=== PATIENT | male | born 1935 | race Caucasian/White ===

== ENCOUNTER → 2017-10-30 13:38 | Outpatient (CLI) | payer MEDICARE, OTHER, SELFPAY ==
[2017-10-30 15:11] LABS: Alanine Aminotransferase 41 IU/L (21-72); Aspartate Aminotransferase 37 IU/L (17-59); Cholesterol 133 mg/dL (140-199); HDL Cholesterol 38 mg/dL (40-60); LDL Cholesterol Calculated 70 mg/dL (<100); Triglycerides 125 mg/dL (35-150)
== END ==
PROVIDERS: PCP Internal Medicine; Visit Provider Internal Medicine
DX: E78.00 Pure hypercholesterolemia, unspecified (principal)
CPT/HCPCS: 36415; 80061; 84450; 84460

== ENCOUNTER → 2017-12-14 10:27 | Outpatient (CLI) | payer MEDICARE, OTHER, SELFPAY ==
[2017-12-14 11:18] LABS: Hematocrit 42.1 % (41-53); Hemoglobin 14.4 g/dL (13.5-17.5)
[2017-12-14 11:38] LABS: Creatinine Urine Random 102.3 mg/dL; Protein (Total) Urine Random 11 mg/dL (0-12)
[2017-12-14 11:40] LABS: Blood Urea Nitrogen 24 mg/dL (9-20); Calcium 9.5 mg/dL (8.4-10.2); Carbon Dioxide 33 mmol/L (22-32); Chloride 102 mmol/L (98-107); Estimated Glomerular Filt Rate 44.7 mL/min (>60); Glucose 108 mg/dL (80-110); HEMOLYSIS < 15 (0-50); Potassium 4.8 mmol/L (3.4-5.1); Sodium 144 mmol/L (137-145)
[2017-12-15 16:41] LABS: Parathyroid Hormone Int 63 pg/mL (14-64)
== END ==
PROVIDERS: PCP Internal Medicine; Visit Provider Student in an Organized Health Care Education/Training Program
DX: N05.9 Unspecified nephritic syndrome with unspecified morphologic changes (principal); D64.9 Anemia, unspecified; N25.81 Secondary hyperparathyroidism of renal origin; R80.9 Proteinuria, unspecified
CPT/HCPCS: 36415; 80048; 82570; 83970; 84156; 85014; 85018

== ENCOUNTER → 2018-06-24 10:54 | Outpatient (CLI) | payer MEDICARE, OTHER, SELFPAY ==
[2018-06-24 11:46] LABS: Hematocrit 42.1 % (41-53); Hemoglobin 13.9 g/dL (13.5-17.5)
[2018-06-24 12:10] LABS: BUN Creatinine Ratio 14.7 (6-22); Blood Urea Nitrogen 25 mg/dL (9-20); Calcium 9.3 mg/dL (8.4-10.2); Carbon Dioxide 29 mmol/L (22-32); Chloride 103 mmol/L (98-107); Estimated Glomerular Filt Rate 38.7 mL/min (>60); Glucose 100 mg/dL (80-110); HEMOLYSIS < 15 (0-50); Potassium 4.8 mmol/L (3.4-5.1); Sodium 141 mmol/L (137-145)
[2018-06-24 15:47] LABS: Creatinine Urine Random 185.3 mg/dL; Protein (Total) Urine Random 9 mg/dL (0-12); Protein Creatinine Ratio Urine 0.04 GRAM/24H
[2018-06-27 14:13] LABS: Parathyroid Hormone Int 71 pg/mL (14-64)
== END ==
PROVIDERS: PCP Internal Medicine; Referring Provider Internal Medicine Cardiovascular Disease; Visit Provider Student in an Organized Health Care Education/Training Program
DX: N05.9 Unspecified nephritic syndrome with unspecified morphologic changes (principal); D64.9 Anemia, unspecified; N25.81 Secondary hyperparathyroidism of renal origin; R80.9 Proteinuria, unspecified
CPT/HCPCS: 36415; 80048; 82570; 83970; 84156; 85014; 85018

== ENCOUNTER → 2019-01-02 10:38 | Outpatient (CLI) | payer MEDICARE, OTHER, SELFPAY ==
[2019-01-02 11:32] LABS: Hematocrit 42.2 % (41-53); Hemoglobin 14.4 g/dL (13.5-17.5)
[2019-01-02 12:08] LABS: BUN Creatinine Ratio 17.6 (6-22); Blood Urea Nitrogen 30 mg/dL (9-20); Calcium 9.7 mg/dL (8.4-10.2); Carbon Dioxide 30 mmol/L (22-32); Chloride 100 mmol/L (98-107); Estimated Glomerular Filt Rate 38.6 mL/min (>60); Glucose 152 mg/dL (80-110); HEMOLYSIS < 15 (0-50); Potassium 4.9 mmol/L (3.4-5.1); Sodium 138 mmol/L (137-145)
[2019-01-02 12:20] LABS: Creatinine Urine Random 141.5 mg/dL; Protein (Total) Urine Random 11 mg/dL (0-12); Protein Creatinine Ratio Urine 0.07 GRAM/24H
[2019-01-04 15:09] LABS: Parathyroid Hormone Int 24 pg/mL (14-64)
== END ==
PROVIDERS: Family Provider Internal Medicine; PCP Internal Medicine; Visit Provider Student in an Organized Health Care Education/Training Program
DX: N05.9 Unspecified nephritic syndrome with unspecified morphologic changes (principal); D64.9 Anemia, unspecified; N25.81 Secondary hyperparathyroidism of renal origin; R80.9 Proteinuria, unspecified
CPT/HCPCS: 36415; 80048; 82570; 83970; 84156; 85014; 85018

== ENCOUNTER → 2019-08-22 10:17 | Outpatient (CLI) | payer MEDICARE, OTHER, SELFPAY ==
[2019-08-22 10:59] LABS: Hematocrit 42.3 % (41-53); Hemoglobin 14.7 g/dL (13.5-17.5)
[2019-08-22 11:52] LABS: BUN Creatinine Ratio 16.4 (6-22); Blood Urea Nitrogen 25 mg/dL (9-20); Calcium 9.4 mg/dL (8.4-10.2); Carbon Dioxide 31 mmol/L (22-32); Chloride 101 mmol/L (98-107); Estimated Glomerular Filt Rate 43.9 mL/min (>60); Glucose 103 mg/dL (80-110); HEMOLYSIS < 15 (0-50); Potassium 4.8 mmol/L (3.4-5.1); Sodium 137 mmol/L (137-145)
[2019-08-22 12:01] LABS: Protein (Total) Urine Random 13 mg/dL (0-12); Protein Creatinine Ratio Urine 0.06 GRAM/24H
[2019-08-23 06:35] LABS: Parathyroid Hormone Int 70 pg/mL (15-65)
== END ==
PROVIDERS: Family Provider Internal Medicine; PCP Internal Medicine; Referring Provider Student in an Organized Health Care Education/Training Program; Visit Provider Student in an Organized Health Care Education/Training Program
DX: N05.9 Unspecified nephritic syndrome with unspecified morphologic changes (principal); D64.9 Anemia, unspecified; N25.81 Secondary hyperparathyroidism of renal origin; R80.9 Proteinuria, unspecified
CPT/HCPCS: 36415; 80048; 82570; 83970; 84156; 85014; 85018

== ENCOUNTER → 2019-11-12 09:49 | Outpatient (CLI) | payer MEDICARE, OTHER, SELFPAY ==
[2019-11-12 11:15] LABS: BUN Creatinine Ratio 23.1 (6-22); Blood Urea Nitrogen 36 mg/dL (9-20); Calcium 9.2 mg/dL (8.4-10.2); Carbon Dioxide 31 mmol/L (22-32); Chloride 103 mmol/L (98-107); Estimated Glomerular Filt Rate 42.5 mL/min (>60); Glucose 111 mg/dL (80-110); HEMOLYSIS < 15 (0-50); Magnesium 2.4 mg/dL (1.6-2.3); Potassium 4.6 mmol/L (3.4-5.1); Sodium 140 mmol/L (137-145)
== END ==
PROVIDERS: Family Provider Internal Medicine; PCP Internal Medicine; Referring Provider Internal Medicine Cardiovascular Disease; Visit Provider Internal Medicine Cardiovascular Disease
DX: I10 Essential (primary) hypertension (principal)
CPT/HCPCS: 36415; 80048; 83735

== ENCOUNTER → 2019-11-18 15:11 | Outpatient (CLI) | payer MEDICARE, OTHER, SELFPAY ==
[2019-11-20 08:41] LABS: COVID19 Sendout Not Detected (Not Detect)
== END ==
PROVIDERS: Family Provider Internal Medicine; PCP Internal Medicine; Visit Provider Physician Assistant
DX: Z11.59 Encounter for screening for other viral diseases (principal)
CPT/HCPCS: 87635

== ENCOUNTER → 2019-11-21 08:29 | Outpatient (CLI) | payer MEDICARE, OTHER, SELFPAY ==
--- NOTE | 2019-11-21 | DI.ECHO.S_ITS ---
[place] +---------+ [facility] +---------+ : : [address] : : : : [address] : : : : [phone] : : : : Phone: [phone]---------+ Echocardiogram Report + + :Name: ADAN HOLDEN Study Date: 11/21/2019 Height: 74 in : :[facility] Location: [facility] Weight: 195 lb : : Gender: Male BSA: 2.1 m2 : :: 1935 Age: 84 yrs BP: 158/92 mmHg: :Reason For Study: SOB : :Ordering Physician: Balbina : :Cori Freitas Performed By: Kate Page : + + Interpretation Summary The left ventricle is normal in size and wall thickness. The ejection fraction is estimated to be 55-60%. The right ventricle is normal in size and function. No significant valvular pathology seen. There is mild aortic regurgitation. The IVC is of normal diameter and collapses greater than 50% with a sniff. This suggests a low right atrial pressure of 3 mm Hg. Procedure: A two-dimensional transthoracic echocardiogram with color flow and Doppler was performed. The study quality was technically adequate. Comparison is made with the echocardiogram of 09/11/2012. The patient was in normal sinus rhythm during the exam. Left Ventricle: The left ventricle is normal in size and wall thickness. There is no thrombus. A false chord is noted (normal variant). The ejection fraction is estimated to be 55-60%. There are no focal wall motion abnormalities. Diastolic parameters suggest a relaxation abnormality of the left ventricle, consistent with probable normal filling pressures. Right Ventricle: The right ventricle is normal in size and function. Atria: The left atrium is moderately dilated. Right atrial size is normal. There is no Doppler evidence for an interatrial shunt. Mitral Valve: There is mild mitral annular calcification. There is trace mitral regurgitation. Aortic Valve: The aortic valve is grossly normal. The aortic valve opens well. There is no aortic valve stenosis. There is mild aortic regurgitation. Tricuspid Valve: The tricuspid valve is normal in structure and function. There is trace tricuspid regurgitation. The right ventricular systolic pressure is estimated to be at least 22 mmHg based on an estimated right atrial pressure of 3 mm Hg. Pulmonic Valve: The pulmonic valve is not well visualized. There is trace pulmonic regurgitation. Great Vessels: The aortic root is normal size. The ascending aorta is at the upper limits of normal in size. The pulmonary is not well visualized. The IVC is of normal diameter and collapses greater than 50% with a sniff. This suggests a low right atrial pressure of 3 mm Hg. Pericardium/ Pleura There is no pericardial effusion. There is no pleural effusion. MMode/2D Measurements & Calculations LVIDd: 4.8 cm LVOT diam: 2.5 cm LVIDs: 3.4 cm Ao root diam: 3.6 cm FS: 30.1 % asc Aorta Diam: 3.6 cm EPSS: 1.1 cm IVSd: 0.81 cm LVPWd: 0.69 cm LV davalos. diameter/BSA (cm/m^2): 2.3 LV sys. diameter/BSA (cm/m^2): 1.6 LA A2 area: 35.1 cm2 RA long axis: 4.9 cm LA A4 area: 25.9 cm2 RA area: 15.6 cm2 LA length (vol): 6.3 cm RA vol: 42.3 ml LA vol: 123.1 ml RA : 19.7 ml/m2 LA vol index: 57.3 ml/m2 IVC diam: 1.4 cm RVD1 (basal): 3.1 cm TAPSE: 1.7 cm Doppler Measurements & Calculations Ao V2 max: 101.9 cm/sec LVOT Max Fitz: 81.0 cm/sec Ao V2 mean: 71.9 cm/sec LV V1 max P.6 mmHg Ao max P.2 mmHg LV V1 VTI: 16.9 cm Ao mean P.2 mmHg YOVANY(I,D): 3.4 cm2 Ao V2 VTI: 23.5 cm YOVANY(V,D): 3.8 cm2 sev ratio: 0.72 YOVANY indexed to BSA (cm^2/m^2): 1.6 AI P1/2t: 610.8 msec AI dec slope: 176.3 cm/sec2 MV E max fitz: 57.5 cm/sec TR max fitz: 216.2 cm/sec MV A max fitz: 63.3 cm/sec TR max P.7 mmHg MV E/A: 0.91 PA V2 max: 45.9 cm/sec Med Peak E' Fitz: 4.2 cm/sec PA V2 mean: 34.2 cm/sec E/E' med: 13.7 PA mean P.51 mmHg Lat Peak E' Fitz: 5.7 cm/sec PA Accel Time: 0.09 sec E/E' lat: 10.1 E/e' average: 11.9 MV P1/2t: 59.0 msec MV P1/2t max fitz: 57.5 cm/sec SV(LVOT): 80.6 ml MVA(2t): 3.7 cm2 Reading Physician:03:06 PM
--- NOTE | 2019-11-21 20:47 | DI.NM.S_ITS ---
DATE OF SERVICE: 11/21/2019 PROCEDURE: Exercise perfusion study. INDICATIONS: Shortness of breath with history of LAD stent, hypertension. RADIOPHARMACEUTICAL: 26.2 millicurie technetium-99m Myoview IV was injected at stress and 9.9 millicurie technetium-99m Myoview IV was injected at rest. CARDIAC STRESS: The patient underwent initially exercise perfusion study under the supervision of an attending staff. He walked on Kulwinder protocol for 4 minutes 15 seconds and had significant shortness of breath. No chest pain. His heart rate was 92, which was 73 percent of target heart rate. Hence, exercise stress test was discontinued and switched to Lexiscan. The patient received IV Lexiscan ,as per protocol. There was normal blood pressure response. In recovery, he felt better. Baseline EKG revealed sinus rhythm with some nonspecific ST-T changes. During stress, no convincing ischemic changes. Rare PVCs. RAW DATA: There is a significant bowel loop seen very high in the chest, all the way up to the level of heart. There was increased subdiaphragmatic activity. GATED STUDY: Resting LV ejection fraction 67 and stress LV ejection fraction 71 percent. Lung/heart ratio within normal limits, it was 0.2. Resting end- diastolic volume 101 mL. On visual inspection, there is no obvious transient ischemic dilatation. PERFUSION SCAN: Please note, there were no prone images. Stress supine and resting supine images were compared to each other. Resting supine images revealed large size, severely decreased perfusion of inferior wall, inferior apex, distal anterior wall, as well as inferior septum. During stress supine, there was mildly decreased perfusion of distal anterior wall and distal inferior wall. There was significant improvement in the stress supine images from resting supine images. No reversible ischemia. CONCLUSION: No reversible ischemia. The stress supine images revealed better perfusion than resting images, as stated above. The patient had a perfusion study in April, and at that time also there was mildly decreased perfusion of distal anterior and distal inferior wall, which got resolved on prone images. This time prone images could not be obtained. Left ventricular function is preserved. No transient ischemic dilatation on visual inspection. There is a significant bowel loop very high in the chest, up to the level of heart. The patient may have diaphragmatic hernia. As far as perfusion scan is concerned, this is not a high-risk perfusion scan. Blane Headley - PULP PRESS TENDER/fn/jailyn doc#: [id number]/job#: [id number] dd: 11/21/2019 17:59:00 dt: 11/21/2019 20:25:00 DICTATING MD/COPIES TO: Balbina Freitas MD COPIES MNE: MAY;
== END ==
PROVIDERS: Family Provider Internal Medicine; PCP Internal Medicine; Referring Provider Internal Medicine; Visit Provider Internal Medicine Cardiovascular Disease
DX: I35.1 Nonrheumatic aortic (valve) insufficiency (principal); R06.02 Shortness of breath; I10 Essential (primary) hypertension; R53.83 Other fatigue; Z95.5 Presence of coronary angioplasty implant and graft
CPT/HCPCS: 78452; 93017; 93306; A9502; J2785

== ENCOUNTER → 2020-04-05 09:41 | Outpatient (CLI) | payer MEDICARE, OTHER, SELFPAY ==
[2020-04-05 10:26] LABS: Hemoglobin 15.2 g/dL (13.5-17.5)
[2020-04-05 10:39] LABS: BUN Creatinine Ratio 18.7 (6-22); Blood Urea Nitrogen 28 mg/dL (9-20); Calcium 9.3 mg/dL (8.4-10.2); Carbon Dioxide 34 mmol/L (22-32); Chloride 103 mmol/L (98-107); Estimated Glomerular Filt Rate 44.5 mL/min (>60); Glucose 111 mg/dL (80-110); HEMOLYSIS < 15 (0-50); Potassium 4.2 mmol/L (3.4-5.1); Sodium 139 mmol/L (137-145)
[2020-04-05 10:40] LABS: Creatinine Urine Random 145.1 mg/dL; Protein (Total) Urine Random 13 mg/dL (0-12); Protein Creatinine Ratio Urine 0.08 GRAM/24H
[2020-04-06 06:07] LABS: Parathyroid Hormone Int 59 pg/mL (15-65)
== END ==
PROVIDERS: Family Provider Internal Medicine; PCP Internal Medicine; Referring Provider Student in an Organized Health Care Education/Training Program; Visit Provider Student in an Organized Health Care Education/Training Program
DX: N05.9 Unspecified nephritic syndrome with unspecified morphologic changes (principal); D64.9 Anemia, unspecified; N25.81 Secondary hyperparathyroidism of renal origin; R80.9 Proteinuria, unspecified
CPT/HCPCS: 36415; 80048; 82570; 83970; 84156; 85014; 85018

== ENCOUNTER 2020-06-03 11:12 | Emergency (ER) | payer MEDICARE, OTHER, SELFPAY ==
[2020-06-03] VITALS (11 sets, daily range): BP systolic 164–217; BP diastolic 79–146; PULSE 70–79; RESP 8–20; TEMP 36.4; O2SAT 96–99; BMI 25.7
--- NOTE | 2020-06-03 11:27 | DI.RAD.S_ITS ---
PROCEDURE: XR CHEST 1V INDICATIONS: chest pain TECHNIQUE: One view of the chest was acquired. COMPARISON: [facility], , XR CHEST 2V, 06/19/2017, 10:47. [facility], , CHEST 1 VIEW, 07/05/2011, 4:43. FINDINGS: Surgical changes and devices: None. Lungs and pleura: Lungs are mildly abnormal with a chronic elevation of the left diaphragm and no sign of pneumonia or significant focal atelectasis. No pleural effusions or pneumothorax. Mediastinum: Mediastinal contours appear normal. Heart size is normal. Bones and chest wall: No suspicious bony lesions. Overlying soft tissues appear unremarkable. IMPRESSION: Chronic left hemithorax volume is reduced due to elevation of the left hemidiaphragm. No acute disease. Source of chest pain is not seen. Dictated by: Thierry Reis M.D. on 06/03/2020 at 11:53 Approved by: Thierry Reis M.D. on 06/03/2020 at 11:54
[2020-06-03 11:37] LABS: INR 1.1 (0.9-1.3); Prothrombin Time 12.5 SECONDS (10.1-12.7)
[2020-06-03 11:39] LABS: PTT Partial Thromboplastin Tim 32 SECONDS (26.4-36.2)
[2020-06-03 11:43] LABS: Alanine Aminotransferase 30 IU/L (<50); Albumin 4.6 g/dL (3.5-5.0); Albumin Globulin Ratio 1.6 (1.0-2.8); Alkaline Phosphatase 116 U/L (38-126); Aspartate Aminotransferase 35 IU/L (17-59); Bilirubin Total 1.1 mg/dL (0.2-1.3); Blood Urea Nitrogen 24 mg/dL (9-20); Calcium 9.6 mg/dL (8.4-10.2); Carbon Dioxide 30 mmol/L (22-32); Chloride 101 mmol/L (98-107); Creatine Kinase 143 U/L (55-170); Estimated Glomerular Filt Rate 47.8 mL/min (>60); Globulin 2.9 g/dL (1.7-4.1); Glucose 107 mg/dL (80-110); HEMOLYSIS < 15 (0-50); Lipase 85 U/L (23-300); Potassium 4.3 mmol/L (3.4-5.1); Sodium 139 mmol/L (137-145); Total Protein 7.5 g/dL (6.3-8.2)
[2020-06-03 11:52] LABS: Add Manual Diff / Slide Review NO; Basophils Absolute Auto 0 /uL (0-100); Basophils Percent Auto 0.7 % (0-2); Eosinophils Absolute Auto 300 /uL (0-450); Hematocrit 43.8 % (41-53); Hemoglobin 14.7 g/dL (13.5-17.5); Lymphocytes Absolute Auto 1400 /uL (1100-4500); Lymphocytes Percent Auto 19.5 % (25-40); Mean Corpuscular HGB Conc 33.6 % (30-36); Mean Corpuscular Volume 92.1 fL (80-100); Monocytes Absolute Auto 600 /uL (0-900); Neutrophils Absolute Auto 4700 /uL (1500-7000); Neutrophils Percent Auto 66.8 % (50-75); Platelet Count 185 X10^3/uL (150-400); Red Blood Cell Count 4.76 X10^6/uL (4.5-5.9); Red Cell Distribution Width 13.5 % (11.6-14.8)
[2020-06-03 11:54] LABS: Troponin I < 0.012 ng/mL (0.01-0.034)
[2020-06-03 11:58] LABS: CKMB % Relative Index 2.2 % (1.5-5.0); Creatine Kinase MB 3.08 ng/mL (<2.37)
--- NOTE | 2020-06-03 13:58 | ED_ITS ---
HPI - General Adult General Chief complaint: Hypertension Stated complaint: high blood pressure Time Seen by Provider: 06/03/20 13:45 Source: patient Mode of arrival: Ambulatory Limitations: no limitations History of Present Illness HPI narrative: Patient alfredo 84-year-old male who presents with hypertension. He was at the urologist clinic to establish care today when they noted the blood pressure was elevated with a systolic in the 190s. He denies any chest pain shortness of breath headache palpitations nausea or vomiting. 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 He checks it on a regular basis and is usually well controlled. He states that if no in told him to come to the emergency department he would not. He rides his bike regularly. Related Data Home Medications Medication Instructions Recorded Confirmed FINASTERIDE (Proscar) 5 mg PO Q OTHER DAY #0 05/14/09 06/03/20 ASPIRIN (#ASPIR 81) 81 mg PO Q DAY #0 07/05/11 06/03/20 diltiazem HCl 180 mg PO QDAY #0 07/05/11 06/03/20 MECLIZINE HCL 25 mg PO PRN #0 05/31/12 06/03/20 sertraline [Zoloft] 50 mg PO QDAY #0 08/08/12 06/03/20 atorvastatin 40 mg tablet 40 mg PO DAILY 05/31/20 06/03/20 carvedilol 6.25 mg tablet 6.25 mg PO BID 05/31/20 06/03/20 Allergies Allergy/AdvReac Type Severity Reaction Status Date / Time No Known Drug Allergies Allergy Verified 06/03/20 11:27 Review of Systems Review of Systems Narrative: GENERAL: Denies chills, fatigue, malaise, fever, sweats, travel HEENT: Denies sinus pain, ear pain, sore throat, difficulty swallowing, neck pain RESPIRATORY: Denies dyspnea, cough, wheezing, hemoptysis, sputum. CARDIOVASCULAR: Denies chest pain, palpitations, orthopnea, edema GASTROINTESTINAL: Denies nausea, vomiting, abdominal pain, diarrhea, constipation, melena. : Denies dysuria, frequency, incontinence, hematuria, urinary retention, flank pain. MUSCULOSKELETAL: Denies weakness, joint pain, or bony pain SKIN: No rash, no erythema, no pruritus NEUROLOGIC: Denies weakness, dizziness, headache, numbness, change in speech, confusion PSYCHIATRIC: No concerning psychosocial issues. 12 point review of systems is negative except for those stated above and HPI Patient History Medical History BPH w urinary obs/LUTS CAD (coronary artery disease) HTN (hypertension) Surgical History History of coronary artery stent placement Social History marital status: number of children: 1 Smoking Status: Former smoker Smokeless tobacco user: other alcohol intake: never caffeine: Yes Smoking Status: Former smoker Substance Use Type: does not use Exam Initial Vital Signs Initial Vital Signs: Vital Signs Pulse Rate 74 06/03/20 11:21 Respiratory Rate 14 06/03/20 11:21 Pulse Oximetry 98 06/03/20 11:21 GENERAL: Wonderful 84-year-old male and in no acute distress. HEENT: Head atraumatic,EOMI, pupils reactive, face symmetric, moist mucous membranes CARDIOVASCULAR: Regular rate and rhythm without murmurs, rubs or gallops. RESPIRATORY: Breath sounds equal bilaterally, no wheezes rales or rhonchi. ABDOMEN: Soft, nontender. Normoactive bowel sounds all 4 quadrants. No guarding or rebound. EXTREMITIES: Normal range of motion, no clubbing or edema. Neurovascularly intact NEUROLOGICAL: Alert and oriented x4.Normal gait and speech. Cranial nerves II through XII grossly intact. Baby Attendant strength equal bilaterally SKIN: Warm, dry, no laceration, no petechiae, no rashes or lesions. Course Orders Ordered: ED Orders 06/03/20 11:23 Complete Blood Count AUTO DIFF Stat Comprehensive Metabolic Panel Stat Lipase Stat Partial Thromboplastin Time Stat Prothrombin Time INR Stat Troponin & CK Cardiac Panel Stat 06/03/20 11:27 XR chest 1V Stat EKG-12 Lead Stat Vital Signs Vital signs: Vital Signs - 8 hr 06/03/20 11:21 06/03/20 11:22 06/03/20 11:30 Temperature 97.6 F Pulse Rate 74 77 70 Respiratory Rate 14 18 16 Blood Pressure 217/104 H 191/86 H Pulse Oximetry 98 98 98 06/03/20 11:39 06/03/20 12:00 06/03/20 12:30 Temperature Pulse Rate 70 71 71 Respiratory Rate 20 16 12 Blood Pressure 174/79 H 164/84 H 182/86 H Pulse Oximetry 99 97 96 06/03/20 12:50 06/03/20 12:53 06/03/20 13:00 Temperature Pulse Rate 71 71 71 Respiratory Rate 10 L 10 L 8 L Blood Pressure 189/146 H 198/86 H 196/86 H Pulse Oximetry 97 98 98 06/03/20 13:30 06/03/20 14:00 Temperature Pulse Rate 74 79 Respiratory Rate 10 L 11 L Blood Pressure 190/85 H 194/90 H Pulse Oximetry 97 98 Medical Decision Making Lab Data Lab results reviewed: Yes I reviewed the patient's lab results. Result diagrams: 06/03/20 11:23 06/03/20 11:23 Labs: Lab Results 06/03/20 06/03/20 06/03/20 Range/Units 11:23 11:23 11:23 WBC 7.0 (4.5-11.0) X10^3/uL RBC 4.76 (4.5-5.9) X10^6/uL Hgb 14.7 (13.5-17.5) g/dL Hct 43.8 (41-53) % MCV 92.1 (80-100) fL MCH 31.0 (26-34) PG MCHC 33.6 (30-36) % RDW 13.5 (11.6-14.8) % Plt Count 185 (150-400) X10^3/uL Neut % (Auto) 66.8 (50-75) % Lymph % (Auto) 19.5 L (25-40) % [place]wood % (Auto) 9.0 (3-14) % Eos % (Auto) 4.0 (2-4) % Baso % (Auto) 0.7 (0-2) % Neut # (Auto) 4700 (7552-3663) /uL Lymph # (Auto) 1400 (6560-7860) /uL Redwood # (Auto) 600 (0-900) /uL Eos # (Auto) 300 (0-450) /uL Baso # (Auto) 0 (0-100) /uL PT 12.5 (10.1-12.7) SECONDS INR 1.1 (0.9-1.3) APTT 32 (26.4-36.2) SECONDS Sodium 139 (137-145) mmol/L Potassium 4.3 (3.4-5.1) mmol/L Chloride 101 (98-107) mmol/L Carbon Dioxide 30 (22-32) mmol/L BUN 24 H (9-20) mg/dL Creatinine 1.41 H (0.66-1.25) mg/dL Estimated GFR 47.8 L (>60) mL/min BUN/Creatinine Ratio 17.0 (6-22) Glucose 107 (80-110) mg/dL Calcium 9.6 (8.4-10.2) mg/dL Total Bilirubin 1.1 (0.2-1.3) mg/dL AST 35 (17-59) IU/L ALT 30 (<50) IU/L Alkaline Phosphatase 116 (38-126) U/L Total Creatine Kinase 143 (55-170) U/L CK-MB (CK-2) 3.08 H (<2.37) ng/mL CK-MB (CK-2) Rel Index 2.2 (1.5-5.0) % Troponin I < 0.012 (0.01-0.034) ng/mL Total Protein 7.5 (6.3-8.2) g/dL Albumin 4.6 (3.5-5.0) g/dL Globulin 2.9 (1.7-4.1) g/dL Albumin/Globulin Ratio 1.6 (1.0-2.8) Lipase 85 (23-300) U/L Imaging Data Chest x-ray: Radiologist's Impression: PROCEDURE: XR CHEST 1V INDICATIONS: chest pain TECHNIQUE: One view of the chest was acquired. COMPARISON: [facility], XR CHEST 2V, 06/19/2017, 10:47. [facility], CHEST 1 VIEW, 07/05/2011, 4:43. FINDINGS: Surgical changes and devices: None. Lungs and pleura: Lungs are mildly abnormal with a chronic elevation of the left diaphragm and no sign of pneumonia or significant focal atelectasis. No pleural effusions or pneumothorax. Mediastinum: Mediastinal contours appear normal. Heart size is normal. Bones and chest wall: No suspicious bony lesions. Overlying soft tissues appear unremarkable. IMPRESSION: Chronic left hemithorax volume is reduced due to elevation of the left hemidiaphragm. No acute disease. Source of chest pain is not seen. Dictated by: Thierry Reis M.D. on 06/03/2020 at 11:53 ECG Data Attestation: I personally reviewed and interpreted this ECG as follows: Prior ECG tracings: available for review Interpretation: Normal sinus rhythm rate 69 p.r. interval 180 QR S 84 QTC [address] changes similar to previous MDM Narrative Medical decision making narrative: Patient's blood pressure has actually de creased with systolic in the 160s. He is completely asymptomatic he has no sign of end-organ damage. Blood pressure slowly rising again to 190s. I have discussed with him he needs to follow up with his machinist supervisor or his primary care doctor to manage his blood pressure. Discharge Plan Departure Patient Disposition: Home Clinical Impression: Hypertension Qualifiers: Hypertension type: essential hypertension Qualified Code(s): I10 - Essential (primary) hypertension Instructions: DI for High Blood Pressure Activity Restrictions/Additional Instructions: *You have been diagnosed with hypertension *What to do: Please continue to monitor blood pressure once daily and keep a log of it. Please discuss your blood pressures with either your machinist supervisor or primary care provider you may need medication adjustment. However today blood work is overall reassuring *Continue to take medications as directed *Follow up with your primary care provider in 2-3 days *Return to ER if you should have chest pain, shortness of breath headache, visual changes, weakness numbness or tingling or any new, worsening or concerning symptoms Prescriptions: No Action FINASTERIDE (Proscar) 5 mg PO Q OTHER DAY Qty: 0 RF: 0 diltiazem HCl 180 MG capsule,extended release 24hr 180 mg PO QDAY Qty: 0 RF: 0 ASPIRIN (#ASPIR 81) 81 mg PO Q DAY Qty: 0 RF: 0 MECLIZINE HCL 25 mg PO PRN Qty: 0 RF: 0 sertraline [Zoloft] 50 MG tablet 50 mg PO QDAY Qty: 0 RF: 0 carvedilol 6.25 mg tablet 6.25 mg PO BID RF: 0 atorvastatin 40 mg tablet 40 mg PO DAILY RF: 0 Referrals: Dk Rivera MD [Primary Care Provider] -
== END 2020-06-03 14:26 | disposition home or self-care (01) ==
PROVIDERS: Emergency Provider Emergency Medicine; Family Provider Internal Medicine; PCP Internal Medicine
DX: I10 Essential (primary) hypertension (principal); R07.9 Chest pain, unspecified
CPT/HCPCS: 36415; 51798; 71045; 80053; 81002; 82550; 82553; 83690; 84484; 85025; 85610; 85730; 93005; 93010; 99213; 99284

== ENCOUNTER → 2020-07-01 15:50 | Outpatient (CLI) | payer MEDICARE, OTHER, SELFPAY ==
[2020-07-01 18:58] LABS: BUN Creatinine Ratio 17.6 (6-22); Blood Urea Nitrogen 26 mg/dL (9-20); Calcium 9.3 mg/dL (8.4-10.2); Carbon Dioxide 30 mmol/L (22-32); Chloride 102 mmol/L (98-107); Estimated Glomerular Filt Rate 45.2 mL/min (>60); Glucose 81 mg/dL (80-110); HEMOLYSIS < 15 (0-50); Potassium 4.5 mmol/L (3.4-5.1); Sodium 139 mmol/L (137-145)
== END ==
PROVIDERS: Family Provider Internal Medicine; PCP Internal Medicine; Referring Provider Internal Medicine Cardiovascular Disease; Visit Provider Internal Medicine Cardiovascular Disease
DX: I10 Essential (primary) hypertension (principal)
CPT/HCPCS: 36415; 80048

== ENCOUNTER → 2020-11-12 09:49 | Outpatient (CLI) | payer MEDICARE, OTHER, SELFPAY ==
[2020-11-12 10:52] LABS: Hematocrit 41.7 % (41-53); Hemoglobin 13.9 g/dL (13.5-17.5)
[2020-11-12 11:35] LABS: Creatinine Urine Random 161.4 mg/dL; Protein (Total) Urine Random 11 mg/dL (0-12); Protein Creatinine Ratio Urine 0.06 GRAM/24H
[2020-11-12 11:36] LABS: BUN Creatinine Ratio 13.3 (6-22); Blood Urea Nitrogen 20 mg/dL (9-20); Calcium 9.2 mg/dL (8.4-10.2); Carbon Dioxide 32 mmol/L (22-32); Chloride 103 mmol/L (98-107); Estimated Glomerular Filt Rate 44.4 mL/min (>60); Glucose 110 mg/dL (80-110); HEMOLYSIS < 15 (0-50); Potassium 4.7 mmol/L (3.4-5.1); Sodium 139 mmol/L (137-145)
[2020-11-13 08:15] LABS: Parathyroid Hormone Int 62 pg/mL (15-65)
== END ==
PROVIDERS: Family Provider Internal Medicine; PCP Internal Medicine; Referring Provider Student in an Organized Health Care Education/Training Program; Visit Provider Student in an Organized Health Care Education/Training Program
DX: R80.9 Proteinuria, unspecified (principal); N05.9 Unspecified nephritic syndrome with unspecified morphologic changes; D64.9 Anemia, unspecified; N25.81 Secondary hyperparathyroidism of renal origin
CPT/HCPCS: 36415; 80048; 82570; 83970; 84156; 85014; 85018

== ENCOUNTER → 2020-11-22 09:34 | Outpatient (CLI) | payer MEDICARE, OTHER, SELFPAY ==
[2020-11-22 12:17] LABS: BUN Creatinine Ratio 19.9 (6-22); Blood Urea Nitrogen 28 mg/dL (9-20); Calcium 9.5 mg/dL (8.4-10.2); Carbon Dioxide 32 mmol/L (22-32); Chloride 101 mmol/L (98-107); Estimated Glomerular Filt Rate 47.7 mL/min (>60); Glucose 99 mg/dL (80-110); HEMOLYSIS < 15 (0-50); Potassium 4.6 mmol/L (3.4-5.1); Sodium 140 mmol/L (137-145)
== END ==
PROVIDERS: Family Provider Internal Medicine; PCP Internal Medicine; Referring Provider Internal Medicine Cardiovascular Disease; Visit Provider Internal Medicine Cardiovascular Disease
DX: I10 Essential (primary) hypertension (principal)
CPT/HCPCS: 36415; 80048

== ENCOUNTER → 2021-05-13 09:41 | Outpatient (CLI) | payer MEDICARE, OTHER, SELFPAY ==
[2021-05-13 11:11] LABS: Add Manual Diff / Slide Review NO; Basophils Absolute Auto 0 /uL (0-100); Basophils Percent Auto 0.6 % (0-2); Eosinophils Absolute Auto 200 /uL (0-450); Eosinophils Percent Auto 3.1 % (2-4); Hematocrit 40.5 % (41-53); Lymphocytes Absolute Auto 900 /uL (1100-4500); Lymphocytes Percent Auto 15.3 % (25-40); Mean Corpuscular HGB Conc 34.5 % (30-36); Mean Corpuscular Hemoglobin 31.6 PG (26-34); Mean Corpuscular Volume 91.5 fL (80-100); Monocytes Absolute Auto 400 /uL (0-900); Monocytes Percent Auto 7.6 % (3-14); Neutrophils Absolute Auto 4200 /uL (1500-7000); Neutrophils Percent Auto 73.4 % (50-75); Platelet Count 183 X10^3/uL (150-400); Red Blood Cell Count 4.42 X10^6/uL (4.5-5.9); Red Cell Distribution Width 13.5 % (11.6-14.8); White Blood Cell Count 5.7 X10^3/uL (4.5-11.0)
[2021-05-13 12:05] LABS: Thyroid Stimulating Hormone 3.61 uIU/mL (0.47-4.68)
== END ==
PROVIDERS: Family Provider Internal Medicine; PCP Internal Medicine; Referring Provider Nurse Practitioner; Visit Provider Nurse Practitioner
DX: I10 Essential (primary) hypertension (principal)
CPT/HCPCS: 36415; 84443; 85025

== ENCOUNTER → 2021-06-20 09:46 | Outpatient (CLI) | payer MEDICARE, OTHER, SELFPAY ==
[2021-06-20 11:29] LABS: Hematocrit 40.3 % (41-53); Hemoglobin 14.1 g/dL (13.5-17.5)
[2021-06-20 12:26] LABS: BUN Creatinine Ratio 18.7 (6-22); Blood Urea Nitrogen 28 mg/dL (9-20); Calcium 9.1 mg/dL (8.4-10.2); Carbon Dioxide 31 mmol/L (22-32); Chloride 104 mmol/L (98-107); Estimated Glomerular Filt Rate 45 mL/min (>60); Glucose 97 mg/dL (80-110); HEMOLYSIS < 15 (0-50); Potassium 4.8 mmol/L (3.4-5.1); Sodium 142 mmol/L (137-145)
[2021-06-20 16:31] LABS: Creatinine Urine Random 228.8 mg/dL; Protein (Total) Urine Random 17 mg/dL (0-12); Protein Creatinine Ratio Urine 0.07 GRAM/24H
[2021-06-21 09:36] LABS: Parathyroid Hormone Int 64 pg/mL (15-65)
== END ==
PROVIDERS: Family Provider Internal Medicine; PCP Internal Medicine; Referring Provider Student in an Organized Health Care Education/Training Program; Visit Provider Student in an Organized Health Care Education/Training Program
DX: N05.9 Unspecified nephritic syndrome with unspecified morphologic changes (principal); D64.9 Anemia, unspecified; N25.81 Secondary hyperparathyroidism of renal origin; R80.9 Proteinuria, unspecified
CPT/HCPCS: 36415; 80048; 82570; 83970; 84156; 85014; 85018

== ENCOUNTER → 2021-06-27 13:10 | Outpatient (CLI) | payer MEDICARE, OTHER, SELFPAY ==
[2021-06-27 16:47] LABS: COVID19 -Nasal RAPID Negative (Negative)
== END ==
PROVIDERS: Family Provider Internal Medicine; PCP Internal Medicine; Visit Provider Family Medicine Sleep Medicine
DX: Z20.822 Contact with and (suspected) exposure to COVID-19 (principal)
CPT/HCPCS: 87635; C9803

== ENCOUNTER → 2021-06-29 09:11 | Outpatient (CLI) | payer MEDICARE, OTHER, SELFPAY ==
--- NOTE | 2021-06-29 | DI.NM.S_ITS ---
PROCEDURE: NM CLARENCE PERF SPECT R&S PHARM Rest and pharmacological stress myocardial perfusion SPECT with gated imaging and ejection fraction RADIOPHARMACEUTICAL: 12.4 mCi Tc-99m tetrafosmin IV at rest and 25.2 mCi Tc-99m tetrafosmin IV at peak effect of pharmacological stress. [id number] was performed. INDICATIONS: Presence of coronary angioplasty implant and graft TECHNIQUE: Radiopharmaceutical was injected at peak stress test, and also at rest. SPECT images were obtained. SPECT myocardial perfusion images were displayed in short axis, horizontal long axis, and vertical long axis views. Gated images were reviewed using [employer] software. COMPARISON: None. CARDIAC STRESS: A pharmacologic stress test was performed under the supervision of an attending staff, using an infusion of regadenoson. Hemodynamic data: There is normal blood pressure and heart rate response to pharmacologic stress. Symptoms: The patient denied anginal chest pain. EKG: No ST segment changes; no ectopy. FINDINGS: Raw data: There is good myocardial uptake of radiotracer. No significant motion artifacts. Esdb-cc-acrcy ratio is 0.32 (normal is less than 0.38 for tetrafosmin tracer). Left ventricle function: Gated images demonstrate normal left ventricular wall thickening. No segmental wall motion abnormalities. No transient ischemic dilation; TID is 0.88 (normal less than 1.3). Left ventricle resting end diastolic volume is 110 mL. Left ventricle stress ejection fraction is 70%; normal range is above 45%. Myocardial perfusion: There is normal distribution of activity in the right and left ventricular myocardium. No fixed or reversible perfusion defects. IMPRESSION: No evidence of pharmacologic induced ischemia or scar. Dictated by: Roberta Pastrana D.O. on 06/29/2021 at 17:57 Approved by: Roberta Pastrana D.O. on 06/29/2021 at 17:59
== END ==
PROVIDERS: Family Provider Internal Medicine; PCP Internal Medicine; Referring Provider Nurse Practitioner; Visit Provider Nurse Practitioner
DX: I25.10 Atherosclerotic heart disease of native coronary artery without angina pectoris (principal); Z95.5 Presence of coronary angioplasty implant and graft
CPT/HCPCS: 78452; 93017; A9502; J2785

== ENCOUNTER → 2021-07-04 09:04 | Outpatient (CLI) | payer MEDICARE, OTHER, SELFPAY ==
--- NOTE | 2021-07-04 | DI.ECHO.S_ITS ---
[facility] +---------+ [facility] +---------+ : : [address] : : [address] : : : : [phone] : : : : Phone: [phone]---------+ Echocardiogram Report + + :Name: ADAN HOLDEN Study Date: 07/04/2021 Height: 74 in : :[facility] ReadingLocation: Weight: 200 lb : : Gender: Male BSA: 2.2 m2 : :: 1935 Age: 85 yrs BP: 146/83 mmHg: :Reason For Study: CORONARY ANGIOPLASTY IMPANT AND GRAFT : :Ordering Physician: TACO, : :PROSPER Apodaca Performed By: Amanda Hernández : :Referring: PROSPER ESPAÑA : + + Interpretation Summary 1) Normal left ventricular size and thickness with low normal systolic function (EF about 55%). 2) Subtle hypokinesis of the inferolateral and anterolateral wall, which can also be seen on the prior study. The wall motion abnormality may be artifactual due to poor endothelial visualization. 3) Normal right ventricular size and function. 4) There is mild aortic regurgitation. 5) Compared to the Echo done 11/21/2019, no significant change when compared visually. Procedure: A two-dimensional transthoracic echocardiogram with color flow and Doppler was performed. The study quality was technically difficult. Comparison is made with the echocardiogram of 11/21/2019. Patient had difficult laying in correct postion due to vertigo. The patient was in sinus rhythm with heart rates between 50-55 bpm during the exam. Left Ventricle: The left ventricle is normal in size and wall thickness. Left ventricular ejection fraction is estimated to be 55 +/- 5%. Subtle hypokinesis of the inferolateral and anterolateral wall, which can also be seen on the prior study. Right Ventricle: The right ventricle is normal in size and function. Atria: The left atrium is moderately dilated. Right atrial size is normal. There is no Doppler evidence for an interatrial shunt. Mitral Valve: The mitral valve is normal in structure and function. There is trace mitral regurgitation. Aortic Valve: The aortic valve is trileaflet. The aortic valve opens well. There is no aortic valve stenosis. There is mild aortic regurgitation. Tricuspid Valve: The tricuspid valve is normal in structure and function. There is trace tricuspid regurgitation. Pulmonic Valve: The pulmonic valve is not well visualized. There is no pulmonic valvular regurgitation. Great Vessels: The aortic root is normal size. The ascending aorta could not be visualized. The IVC is of normal diameter and collapses greater than 50% with a sniff. This suggests a low right atrial pressure of 3 mm Hg. Pericardium/ Pleura There is no pericardial effusion. There is no pleural effusion. MMode/2D Measurements & Calculations LVIDd: 3.6 cm LVOT diam: 2.4 cm LVIDs: 2.8 cm Ao root diam: 3.7 cm FS: 22.1 % IVSd: 0.97 cm LVPWd: 0.94 cm LV davalos. diameter/BSA (cm/m^2): 1.7 LV sys. diameter/BSA (cm/m^2): 1.3 LA A2 area: 29.1 cm2 RA long axis: 6.3 cm LA A4 area: 28.0 cm2 RA area: 21.2 cm2 LA length (vol): 6.7 cm RA vol: 61.1 ml LA vol: 102.9 ml RA : 28.1 ml/m2 LA vol index: 47.3 ml/m2 IVC diam: 1.3 cm RVD1 (basal): 3.1 cm RVD2 (mid): 3.1 cm TAPSE: 1.7 cm Doppler Measurements & Calculations Ao V2 max: 105.2 cm/sec LVOT Max Fitz: 69.8 cm/sec Ao V2 mean: 72.4 cm/sec LV V1 max P.9 mmHg Ao max P.4 mmHg LV V1 VTI: 17.6 cm Ao mean P.4 mmHg YOVANY(I,D): 3.2 cm2 Ao V2 VTI: 24.0 cm YOVANY(V,D): 2.9 cm2 sev ratio: 0.73 YOVANY indexed to BSA (cm^2/m^2): 1.5 AI P1/2t: 762.4 msec AI dec slope: 128.4 cm/sec2 MV E max fitz: 63.5 cm/sec PA V2 max: 90.4 cm/sec MV A max fitz: 56.0 cm/sec PA V2 mean: 58.1 cm/sec MV E/A: 1.1 PA mean P.6 mmHg Med Peak E' Fitz: 5.0 cm/sec PA pr(Accel): 20.8 mmHg E/E' med: 12.8 Lat Peak E' Fitz: 4.7 cm/sec E/E' lat: 13.5 E/e' average: 13.2 MV dec time: 0.21 sec SV(LVOT): 76.9 ml Reading Physician:01:10 PM
== END ==
PROVIDERS: Family Provider Internal Medicine; PCP Internal Medicine; Referring Provider Nurse Practitioner; Visit Provider Nurse Practitioner
DX: Z95.5 Presence of coronary angioplasty implant and graft (principal); I35.1 Nonrheumatic aortic (valve) insufficiency; R06.00 Dyspnea, unspecified
CPT/HCPCS: 93306

== ENCOUNTER → 2021-12-19 14:15 | Outpatient (CLI) | payer MEDICARE, OTHER, SELFPAY ==
[2021-12-19 15:25] LABS: Hematocrit 41.6 % (41-53); Mean Corpuscular HGB Conc 33.8 % (30-36); Mean Corpuscular Hemoglobin 31.5 PG (26-34); Mean Corpuscular Volume 93.4 fL (80-100); Platelet Count 195 X10^3/uL (150-400); Red Blood Cell Count 4.46 X10^6/uL (4.5-5.9); White Blood Cell Count 6.4 X10^3/uL (4.5-11.0)
[2021-12-19 15:53] LABS: Alanine Aminotransferase 41 IU/L (<50); Albumin 4.3 g/dL (3.5-5.0); Albumin Globulin Ratio 1.5 (1.0-2.8); Alkaline Phosphatase 115 U/L (38-126); Aspartate Aminotransferase 38 IU/L (17-59); BUN Creatinine Ratio 18.9 (6-22); Bilirubin Total 0.7 mg/dL (0.2-1.3); Blood Urea Nitrogen 27 mg/dL (9-20); Calcium 9.3 mg/dL (8.4-10.2); Carbon Dioxide 29 mmol/L (22-32); Chloride 104 mmol/L (98-107); Cholesterol 136 mg/dL (140-199); Estimated Glomerular Filt Rate 47 mL/min (>60); Globulin 2.9 g/dL (1.7-4.1); Glucose 102 mg/dL (80-110); HDL Cholesterol 39 mg/dL (40-60); HEMOLYSIS 16 (0-50); LDL Cholesterol Calculated 67 mg/dL (<100); Sodium 141 mmol/L (137-145); Total Protein 7.2 g/dL (6.3-8.2); Triglycerides 151 mg/dL (35-150)
[2021-12-19 16:21] LABS: TSH w/ Reflex to FT4 2.51 uIU/mL (0.47-4.68)
== END ==
PROVIDERS: Family Provider Internal Medicine; PCP Internal Medicine; Referring Provider Internal Medicine; Visit Provider Internal Medicine
DX: E78.2 Mixed hyperlipidemia (principal); I10 Essential (primary) hypertension; I25.10 Atherosclerotic heart disease of native coronary artery without angina pectoris; N18.32 Chronic kidney disease, stage 3b; Z86.79 Personal history of other diseases of the circulatory system
CPT/HCPCS: 36415; 80053; 80061; 84443; 85027

== ENCOUNTER → 2022-01-17 13:56 | Outpatient (CLI) | payer MEDICARE, OTHER, SELFPAY ==
[2022-01-17 14:36] LABS: Hematocrit 43.6 % (41-53); Hemoglobin 14.5 g/dL (13.5-17.5)
[2022-01-17 14:52] LABS: BUN Creatinine Ratio 20.8 (6-22); Blood Urea Nitrogen 31 mg/dL (9-20); Calcium 9.5 mg/dL (8.4-10.2); Carbon Dioxide 30 mmol/L (22-32); Chloride 102 mmol/L (98-107); Estimated Glomerular Filt Rate 45 mL/min (>60); Glucose 101 mg/dL (80-110); HEMOLYSIS < 15 (0-50); Sodium 141 mmol/L (137-145)
[2022-01-17 15:13] LABS: Potassium 5.6 mmol/L (3.4-5.1)
[2022-01-17 15:34] LABS: Creatinine Urine Random 131.1 mg/dL; Protein (Total) Urine Random 14 mg/dL (0-12)
[2022-01-19 06:36] LABS: Parathyroid Hormone Int 83 pg/mL (15-65)
== END ==
PROVIDERS: Family Provider Internal Medicine; PCP Internal Medicine; Referring Provider Student in an Organized Health Care Education/Training Program; Visit Provider Student in an Organized Health Care Education/Training Program
DX: N05.9 Unspecified nephritic syndrome with unspecified morphologic changes (principal); D64.9 Anemia, unspecified; N25.81 Secondary hyperparathyroidism of renal origin; R80.9 Proteinuria, unspecified
CPT/HCPCS: 36415; 80048; 82570; 83970; 84156; 85014; 85018

== ENCOUNTER → 2022-01-23 09:50 | Outpatient (CLI) | payer MEDICARE, OTHER, SELFPAY ==
[2022-01-23 10:37] LABS: HEMOLYSIS 16 (0-50); Potassium 5.1 mmol/L (3.4-5.1)
== END ==
PROVIDERS: Family Provider Internal Medicine; PCP Internal Medicine; Referring Provider Student in an Organized Health Care Education/Training Program; Visit Provider Student in an Organized Health Care Education/Training Program
DX: E87.5 Hyperkalemia (principal)
CPT/HCPCS: 36415; 84132

== ENCOUNTER → 2022-05-16 08:47 | Outpatient (CLI) | payer OTHER, SELFPAY ==
[2022-05-16 10:09] LABS: BUN Creatinine Ratio 10.8 (6-22); Blood Urea Nitrogen 18 mg/dL (9-20); Calcium 8.9 mg/dL (8.4-10.2); Carbon Dioxide 31 mmol/L (22-32); Chloride 101 mmol/L (98-107); Estimated Glomerular Filt Rate 39 mL/min (>60); Glucose 94 mg/dL (80-110); HEMOLYSIS < 15 (0-50); Potassium 4.2 mmol/L (3.4-5.1); Sodium 139 mmol/L (137-145)
== END ==
PROVIDERS: Family Provider Internal Medicine; PCP Internal Medicine; Referring Provider Student in an Organized Health Care Education/Training Program; Visit Provider Student in an Organized Health Care Education/Training Program
DX: N05.9 Unspecified nephritic syndrome with unspecified morphologic changes (principal)
CPT/HCPCS: 36415; 80048

== ENCOUNTER → 2022-07-26 09:55 | Outpatient (CLI) | payer OTHER, SELFPAY ==
[2022-07-26 11:30] LABS: BUN Creatinine Ratio 19.3 (6-22); Blood Urea Nitrogen 33 mg/dL (9-20); Calcium 8.9 mg/dL (8.4-10.2); Carbon Dioxide 34 mmol/L (22-32); Chloride 100 mmol/L (98-107); Estimated Glomerular Filt Rate 38 mL/min (>60); Glucose 107 mg/dL (80-110); HEMOLYSIS < 15 (0-50); Potassium 4.1 mmol/L (3.4-5.1); Sodium 139 mmol/L (137-145)
== END ==
PROVIDERS: Family Provider Internal Medicine; PCP Internal Medicine; Referring Provider Internal Medicine Cardiovascular Disease; Visit Provider Internal Medicine Cardiovascular Disease
DX: I10 Essential (primary) hypertension (principal)
CPT/HCPCS: 36415; 80048

== ENCOUNTER → 2022-08-15 10:28 | Outpatient (CLI) | payer OTHER, SELFPAY ==
[2022-08-15 11:03] LABS: Hematocrit 38.9 % (41-53); Hemoglobin 13.3 g/dL (13.5-17.5)
[2022-08-15 11:23] LABS: BUN Creatinine Ratio 18.5 (6-22); Blood Urea Nitrogen 29 mg/dL (9-20); Carbon Dioxide 31 mmol/L (22-32); Chloride 101 mmol/L (98-107); Estimated Glomerular Filt Rate 42 mL/min (>60); Glucose 89 mg/dL (80-110); HEMOLYSIS < 15 (0-50); Potassium 4.3 mmol/L (3.4-5.1); Protein (Total) Urine Random 12 mg/dL (0-12); Protein Creatinine Ratio Urine 0.07 GRAM/24H; Sodium 138 mmol/L (137-145)
[2022-08-17 09:28] LABS: Parathyroid Hormone Int 71 pg/mL (15-65)
== END ==
PROVIDERS: Family Provider Internal Medicine; PCP Internal Medicine; Referring Provider Student in an Organized Health Care Education/Training Program; Visit Provider Student in an Organized Health Care Education/Training Program
DX: N05.9 Unspecified nephritic syndrome with unspecified morphologic changes (principal); D64.9 Anemia, unspecified; N25.81 Secondary hyperparathyroidism of renal origin; R80.9 Proteinuria, unspecified
CPT/HCPCS: 36415; 80048; 82570; 83970; 84156; 85014; 85018

== ENCOUNTER → 2022-12-20 15:30 | Outpatient (CLI) | payer OTHER, SELFPAY ==
[2022-12-20 17:55] LABS: Hematocrit 40.3 % (41-53); Mean Corpuscular HGB Conc 34.7 % (30-36); Mean Corpuscular Hemoglobin 31.7 PG (26-34); Mean Corpuscular Volume 91.5 fL (80-100); Platelet Count 220 X10^3/uL (150-400); Red Cell Distribution Width 13.9 % (11.6-14.8); White Blood Cell Count 7.2 X10^3/uL (4.5-11.0)
[2022-12-20 18:01] LABS: Alanine Aminotransferase 31 IU/L (<50); Albumin 4.3 g/dL (3.5-5.0); Albumin Globulin Ratio 1.5 (1.0-2.8); Alkaline Phosphatase 107 U/L (38-126); Aspartate Aminotransferase 34 IU/L (17-59); BUN Creatinine Ratio 24.1 (6-22); Bilirubin Total 0.8 mg/dL (0.2-1.3); Blood Urea Nitrogen 38 mg/dL (9-20); Calcium 9.6 mg/dL (8.4-10.2); Carbon Dioxide 29 mmol/L (22-32); Chloride 102 mmol/L (98-107); Cholesterol 137 mg/dL (140-199); Estimated Glomerular Filt Rate 42 mL/min (>60); Globulin 2.8 g/dL (1.7-4.1); Glucose 124 mg/dL (80-110); HDL Cholesterol 37 mg/dL (40-60); HEMOLYSIS < 15 (0-50); LDL Cholesterol Calculated 65 mg/dL (<100); Potassium 4.6 mmol/L (3.4-5.1); Sodium 140 mmol/L (137-145); Total Protein 7.1 g/dL (6.3-8.2); Triglycerides 177 mg/dL (35-150)
[2022-12-20 18:32] LABS: TSH w/ Reflex to FT4 3.36 uIU/mL (0.47-4.68)
== END ==
PROVIDERS: Family Provider Internal Medicine; PCP Internal Medicine; Referring Provider Internal Medicine; Visit Provider Internal Medicine
DX: E78.2 Mixed hyperlipidemia (principal); N18.32 Chronic kidney disease, stage 3b; I10 Essential (primary) hypertension
CPT/HCPCS: 36415; 80053; 80061; 84443; 85027

== ENCOUNTER 2023-02-25 13:48 | Observation (INO) | payer OTHER, SELFPAY ==
[2023-02-25] VITALS (27 sets, daily range): BP systolic 121–176; BP diastolic 58–82; PULSE 41–81; RESP 12–26; TEMP 36.3–36.4; O2SAT 97–99; BMI 25.7; BMI 25.9
[2023-02-25 14:06] LABS: Add Manual Diff / Slide Review NO; Basophils Absolute Auto 0 /uL (0-100); Basophils Percent Auto 0.4 % (0-2); Eosinophils Absolute Auto 300 /uL (0-450); Eosinophils Percent Auto 2.9 % (2-4); Hematocrit 41.5 % (41-53); Hemoglobin 13.8 g/dL (13.5-17.5); Lymphocytes Absolute Auto 1300 /uL (1100-4500); Lymphocytes Percent Auto 14.4 % (25-40); Mean Corpuscular HGB Conc 33.3 % (30-36); Mean Corpuscular Hemoglobin 30.9 PG (26-34); Mean Corpuscular Volume 92.8 fL (80-100); Monocytes Absolute Auto 600 /uL (0-900); Monocytes Percent Auto 6.6 % (3-14); Neutrophils Absolute Auto 6800 /uL (1500-7000); Neutrophils Percent Auto 75.7 % (50-75); Platelet Count 243 X10^3/uL (150-400); Red Blood Cell Count 4.48 X10^6/uL (4.5-5.9); Red Cell Distribution Width 14.2 % (11.6-14.8); White Blood Cell Count 8.9 X10^3/uL (4.5-11.0)
--- NOTE | 2023-02-25 14:08 | ED_ITS ---
HPI - General Adult General Chief complaint: Syncope Stated complaint: weakness Time Seen by Provider: 02/25/23 13:51 Source: patient and family Mode of arrival: EMS History of Present Illness HPI narrative: Patient is an 79-year-old male. Has a history of AFib/flutter. Is status post ablation many years ago. Does have a history of high blood pressure. Not on anticoagulation. Is here for evaluation of weakness/dizziness. Patient states he was in a meeting earlier today when he started to feel the symptoms. Denied chest pain, shortness of breath, headache. Unsure as to whether not the patient actually had a syncopal episode. When EMS was called they found him with a heart rate in the 30s to 40s. He did receive 0.5 mg of atropine which increased his heart rate to the 50s to 60s. At some point during this event the patient's symptoms did improve. Unsure as to whether or not it was associated with the use of atropine. Here in the emergency department he states he is feeling much better. Again denies chest pain, palpitations. He states that he potentially could have taken extra doses of his blood pressure medicines this morning. He does not know what medications that he takes. Related Data Home Medications Medication Instructions Recorded Confirmed aspirin 81 mg tablet,delayed 81 mg PO DAILY 12/19/21 02/25/23 release cholecalciferol (vitamin D3) 1 tab PO DAILY 12/19/21 12/20/22 [id number]-mhz-brrb-FA-vit K 1 tab PO DAILY 12/19/21 12/20/22 [Adults Multivitamin] omega-3 fatty acids [Fish Oil] 1 cap PO DAILY 12/19/21 12/20/22 valsartan 160 mg tablet 80 mg PO BID 12/19/21 02/25/23 finasteride 5 mg tablet See Rx Instructions .Route .COMPLEX 02/25/23 02/25/23 Previous Rx's Medication Instructions Recorded nitroglycerin 0.4 mg sublingual 0.4 mg sublingual Q5-15M PRN chest 09/26/21 tablet pain #25 tabs alprazolam 0.25 mg tablet 0.25 mg PO BEDTIME PRN sleep #30 01/16/22 tabs carvedilol 6.25 mg tablet 3.125 mg (1/2 x 6.25 mg) PO BID 02/01/22 #90 tabs diltiazem HCl 180 mg 180 mg PO DAILY #90 caps 07/19/22 capsule,extended release 24 hr sertraline 50 mg tablet (Zoloft) 50 mg PO QDAY #90 tabs 10/02/22 Parking Permit... #1 ea 12/20/22 atorvastatin 40 mg tablet 40 mg PO DAILY #90 tabs 01/23/23 Allergies Allergy/AdvReac Type Severity Reaction Status Date / Time No Known Drug Allergies Allergy Verified 12/20/22 13:43 Review of Systems Constitutional Constitutional: Reports system reviewed and no additional complaints, except as documented Cardiovascular Cardiovascular: Reports system reviewed and no additional complaints, except as documented Respiratory Respiratory: Reports system reviewed and no additional complaints, except as documented Gastrointestinal Gastrointestinal: Reports system reviewed and no additional complaints, except as documented Integumentary/Breasts Skin/Breast: Reports system reviewed and no additional complaints, except as documented Neurologic Neurologic: Reports system reviewed and no additional complaints, except as documented Hematologic/Lymphatic On Anticoagulants: No Patient History Medical History Primary osteoarthritis involving multiple joints History of nonmelanoma skin cancer Do not resuscitate Borderline glaucoma Ocular migraine BPPV (benign paroxysmal positional vertigo) Erectile dysfunction Depression, major, recurrent Generalized anxiety disorder Stage 3b chronic kidney disease (CKD) Mixed hyperlipidemia Essential hypertension History of atrial flutter Fractures (~194) Mumps Measles Herpes Chicken pox Kidney disease Skin cancer (~2014) BPH w urinary obs/LUTS CAD (coronary artery disease) Surgical History S/P ablation of atrial flutter Anesthesia History of coronary artery stent placement (~2011) Family History Father History of heart disease Hyperlipidemia Brother History of heart bypass surgery Social History marital status: number of children: 1 Smoking Status: Former smoker Smokeless tobacco user: other alcohol intake: never caffeine: Yes Smoking Status: Former smoker Substance Use Type: does not use Exam Initial Vital Signs Initial Vital Signs: Vital Signs Temperature 97.5 F L 02/25/23 13:58 Pulse Rate 49 L 02/25/23 13:58 Respiratory Rate 16 02/25/23 13:58 Blood Pressure 121/59 L 02/25/23 13:58 Pulse Oximetry 97 02/25/23 13:58 Oxygen Delivery Method Room Air 02/25/23 13:58 Const General: cooperative, comfortable and No ill appearing [facility] Head: normal to inspection and normocephalic Resp Effort & Inspection: normal respiratory effort Auscultation: clear to auscultation bilaterally Cardio Rate: bradycardic Rhythm: regular rhythm GI Inspection: normal to inspection Skin General: no rashes or lesions noted Neuro General: patient alert, patient awake and moves all extremities Extrem General: capillary refill normal Course Orders Ordered: ED Orders 02/25/23 13:52 Basic Metabolic Panel Stat Complete Blood Count AUTO DIFF Stat Magnesium Stat PTT Partial Thromboplastin Parveen Stat Prothrombin Time INR Stat Troponin & CK Cardiac Panel Stat 02/25/23 14:06 COVID19 -Nasal RAPID Stat 02/25/23 14:07 EKG-12 Lead Stat Acetaminophen (Acetaminophen 325 Mg Tablet) 650 mg PO Q6H PRN PRN Reason: Fever/Mild Pain (1-3) Alprazolam (Alprazolam 0.25 Mg Tablet) 0.25 mg PO BEDTIME PRN PRN Reason: sleep Aspirin (Aspirin Ec 81 Mg Tablet) 81 mg PO DAILY [facility] Atorvastatin Calcium (Atorvastatin 20 Mg Tablet) 40 mg PO DAILY [facility] Atropine Sulfate (Atropine 1 Mg/10 Ml Syringe) 0.5 mg IV PRN PRN PRN Reason: Bradycardia Finasteride (Finasteride 5 Mg Tablet) 0 mg PO DAILY [facility] Naloxone HCl (Naloxone 0.4 Mg/Ml Vial) 0.2 mg IV Q2MIN PRN PRN Reason: Opiate Reversal Sertraline HCl (Sertraline 50 Mg Tablet) 50 mg PO DAILY [facility] Valsartan (Valsartan 80 Mg Tablet) 80 mg PO BID [facility] Vital Signs Vital signs: Vital Signs - 8 hr 02/25/23 13:58 02/25/23 14:20 02/25/23 14:21 Temperature 97.5 F L Pulse Rate 49 L 45 L 57 L Respiratory Rate 16 26 H 21 Blood Pressure 121/59 L Pulse Oximetry 97 97 97 Oxygen Delivery Method Room Air Room Air 02/25/23 14:21 02/25/23 14:22 02/25/23 14:24 Temperature Pulse Rate 43 L 42 L 56 L Respiratory Rate 14 16 Blood Pressure 148/66 H 148/66 H Pulse Oximetry 98 97 Oxygen Delivery Method Room Air 02/25/23 14:24 02/25/23 14:25 02/25/23 14:25 Temperature Pulse Rate 42 L Respiratory Rate 15 Blood Pressure 166/69 H 154/70 H Pulse Oximetry 97 Oxygen Delivery Method Room Air 02/25/23 14:30 02/25/23 14:30 02/25/23 14:35 Temperature Pulse Rate 49 L Respiratory Rate 12 Blood Pressure 136/67 129/62 Pulse Oximetry 98 Oxygen Delivery Method 02/25/23 14:35 02/25/23 14:40 02/25/23 14:40 Temperature Pulse Rate 42 L 44 L Respiratory Rate 17 19 Blood Pressure 140/62 Pulse Oximetry 97 97 Oxygen Delivery Method Room Air Room Air 02/25/23 14:46 02/25/23 14:46 02/25/23 14:50 Temperature Pulse Rate 45 L 42 L Respiratory Rate 16 13 Blood Pressure 147/69 H Pulse Oximetry 98 98 Oxygen Delivery Method Room Air 02/25/23 14:50 02/25/23 15:00 02/25/23 15:00 Temperature Pulse Rate 45 L Respiratory Rate 14 Blood Pressure 164/69 H 152/68 H Pulse Oximetry 97 Oxygen Delivery Method 02/25/23 15:10 02/25/23 15:10 02/25/23 15:20 Temperature Pulse Rate 47 L Respiratory Rate 23 Blood Pressure 154/67 H 153/71 H Pulse Oximetry 97 Oxygen Delivery Method 02/25/23 15:20 02/25/23 15:30 02/25/23 15:30 Temperature Pulse Rate 50 L 54 L Respiratory Rate 22 15 Blood Pressure 156/67 H Pulse Oximetry 98 97 Oxygen Delivery Method Room Air 02/25/23 15:40 02/25/23 15:40 02/25/23 15:50 Temperature Pulse Rate 48 L 45 L Respiratory Rate 14 14 Blood Pressure 150/65 H Pulse Oximetry 97 97 Oxygen Delivery Method 02/25/23 15:50 02/25/23 16:00 02/25/23 16:00 Temperature Pulse Rate 44 L Respiratory Rate 14 Blood Pressure 143/64 H 121/58 L Pulse Oximetry 97 Oxygen Delivery Method 02/25/23 16:10 02/25/23 16:10 Temperature Pulse Rate 41 L Respiratory Rate 12 Blood Pressure 142/60 H Pulse Oximetry 99 Oxygen Delivery Method Medical Decision Making Medical Records Medical records reviewed: Yes I reviewed the patient's medical records. Lab Data Lab results reviewed: Yes I reviewed the patient's lab results. 02/25/23 13:52 02/25/23 13:52 Labs: Lab Results 02/25/23 02/25/23 Range/Units 13:52 14:06 WBC 8.9 (4.5-11.0) X10^3/uL RBC 4.48 L (4.5-5.9) X10^6/uL Hgb 13.8 (13.5-17.5) g/dL Hct 41.5 (41-53) % MCV 92.8 (80-100) fL MCH 30.9 (26-34) PG MCHC 33.3 (30-36) % RDW 14.2 (11.6-14.8) % Plt Count 243 (150-400) X10^3/uL Neut % (Auto) 75.7 H (50-75) % Lymph % (Auto) 14.4 L (25-40) % Rogers % (Auto) 6.6 (3-14) % Eos % (Auto) 2.9 (2-4) % Baso % (Auto) 0.4 (0-2) % Neut # (Auto) 6800 (4731-5146) /uL Lymph # (Auto) 1300 (2708-1329) /uL Rogers # (Auto) 600 (0-900) /uL Eos # (Auto) 300 (0-450) /uL Baso # (Auto) 0 (0-100) /uL PT 12.9 H (9.4-12.5) SECONDS INR 1.1 (0.9-1.3) APTT 28 (25.1-36.5) SECONDS Sodium 138 (137-145) mmol/L Potassium 4.4 (3.4-5.1) mmol/L Chloride 100 (98-107) mmol/L Carbon Dioxide 27 (22-32) mmol/L BUN 30 H (9-20) mg/dL Creatinine 1.90 H (0.66-1.25) mg/dL Estimated GFR 34 L (>60) mL/min BUN/Creatinine Ratio 15.8 (6-22) Glucose 184 H (80-110) mg/dL Calcium 9.4 (8.4-10.2) mg/dL Magnesium 2.4 H (1.6-2.3) mg/dL Total Creatine Kinase 88 (55-170) U/L Troponin I < 0.012 (0.01-0.034) ng/mL SARS-CoV-2 (PCR) Negative (Negative) Point of Care Testing Glucose POC 201 Point of care testing: Point of Care Testing Glucose POC 201 ECG Data Attestation: I personally reviewed and interpreted this ECG as follows: Interpretation: Bradycardic Ventricular rate of 52 Narrow QRS No P waves noted Normal axis Normal QTC Repeat EKG Similar in appearance to prior Ventricular rate of 49 Neuro complex Again no P waves seen Repeat EKG Bradycardic Ventricular rate of 45 No P waves noted Normal axis Normal QRS Repeat EKG Irregular rhythm Ventricular rate is 77 Occasional P waves noted Normal axis Rhythm strips Occasional PVCs MDM Narrative Medical decision making narrative: Patient is consistently bradycardic however he seems to be asymptomatic from this now. Blood pressure is actually elevated with a systolic in the 130s to 160s. We were able to figure out that he is on carvedilol 6.25 and also diltiazem 180 mg a day. I did discuss the case with Dr. Chinchilla Cardiology on-call who was able to review the EKGs. She stated that there were actually P waves but really only noted in lead 1. She felt like this was a sinus rhythm with occasional PACs. She did not feel that this was a junctional rhythm/third- degree heart block. Were not completely sure whether or not the patient took extra doses of his medicines but this is potentially the case. Electrolytes are unremarkable. Plan will be is to admit to the hospital overnight for continued observation. Discussed the case with Dr. Salguero. Also discussed the need for admission with the patient. He expressed understanding and agreement as well. Discharge Plan Departure Patient Disposition: Admitted as Observation Clinical Impression: Bradycardia, Lightheadedness Admit Date/Time: 02/25/23 16:13 Admit Provider: Lio Salguero
[2023-02-25 14:15] LABS: INR 1.1 (0.9-1.3); Prothrombin Time 12.9 SECONDS (9.4-12.5)
[2023-02-25 14:17] LABS: Creatine Kinase 88 U/L (55-170); PTT Partial Thromboplastin Tim 28 SECONDS (25.1-36.5)
[2023-02-25 14:18] LABS: BUN Creatinine Ratio 15.8 (6-22); Blood Urea Nitrogen 30 mg/dL (9-20); Calcium 9.4 mg/dL (8.4-10.2); Carbon Dioxide 27 mmol/L (22-32); Chloride 100 mmol/L (98-107); Estimated Glomerular Filt Rate 34 mL/min (>60); Glucose 184 mg/dL (80-110); HEMOLYSIS < 15 (0-50); Magnesium 2.4 mg/dL (1.6-2.3); Potassium 4.4 mmol/L (3.4-5.1); Sodium 138 mmol/L (137-145)
[2023-02-25 14:23] LABS: COVID19 -Nasal RAPID Negative (Negative)
[2023-02-25 14:30] LABS: Troponin I < 0.012 ng/mL (0.01-0.034)
--- NOTE | 2023-02-25 16:48 | PM.HP.1 ---
History of Present Illness History of Present Illness Date Patient Seen: 02/25/23 Time Patient Seen: 16:00 Chief complaint: weakness Narrative: 87 yo male with distant hx of atrial flutter s/p ablation in 2010, CAD s/p mid LAD stent 04/22, hypertension, hyperlipidemia, CKD, BPV, anxiety developed sudden onset of weakness and near syncope while at [facility] this morning. EMS called and noted HR in 30's with pt in junctional appearing rhythm. Pt was given 0.5 mg atropine with HR recovering to the 50's. In ED, HR has been 30's to 50 range in a sinus bull to junctional rhythm with PACs. Pt states he feel lightheaded. Pt is not sure if he accidentally took extra of his pills this morning. Otherwise has been feeling well. Pt has been on carvedilol and diltiazem for a long time. Per outpatient cardiology note EKG in October 2022 showed s bull rate 58 with first degree AVB. FORMERLY [facility], [facility] Medical History (Updated 02/25/23 @ 16:14 by Rafael Joseph DO) Primary osteoarthritis involving multiple joints History of nonmelanoma skin cancer Do not resuscitate Borderline glaucoma Ocular migraine BPPV (benign paroxysmal positional vertigo) Erectile dysfunction Depression, major, recurrent Generalized anxiety disorder Stage 3b chronic kidney disease (CKD) Mixed hyperlipidemia Essential hypertension History of atrial flutter Fractures (~1944) Mumps Measles Herpes Chicken pox Kidney disease Skin cancer (~2014) BPH w urinary obs/LUTS CAD (coronary artery disease) Surgical History S/P ablation of atrial flutter Anesthesia History of coronary artery stent placement (~2011) Family History Father History of heart disease Hyperlipidemia Brother History of heart bypass surgery Social History marital status: number of children: 1 Smoking Status: Former smoker Smokeless tobacco user: other alcohol intake: never caffeine: Yes Meds Home Medications and Allergies Home Medications Medication Instructions Recorded Confirmed Type nitroglycerin 0.4 mg sublingual 0.4 mg sublingual Q5-15M PRN chest 09/26/21 12/20/22 Rx tablet pain #25 tabs aspirin 81 mg tablet,delayed 81 mg PO DAILY 10/31/22 01/07/24 History release cholecalciferol (vitamin D3) 1 tab PO DAILY 12/19/21 12/20/22 History wjrxtohnaamc-woz-kvlw-FA-vit K 1 tab PO DAILY 12/19/21 12/20/22 History [Adults Multivitamin] omega-3 fatty acids [Fish Oil] 1 cap PO DAILY 12/19/21 12/20/22 History valsartan 160 mg tablet 80 mg PO BID 12/19/21 02/25/23 History alprazolam 0.25 mg tablet 0.25 mg PO BEDTIME PRN sleep #30 01/16/22 12/20/22 Rx tabs carvedilol 6.25 mg tablet 3.125 mg (1/2 x 6.25 mg) PO BID 02/01/22 02/25/23 Rx #90 tabs diltiazem HCl 180 mg 180 mg PO DAILY #90 caps 07/19/22 02/25/23 Rx capsule,extended release 24 hr sertraline 50 mg tablet (Zoloft) 50 mg PO QDAY #90 tabs 10/02/22 02/25/23 Rx Parking Permit... #1 ea 12/20/22 12/20/22 Rx atorvastatin 40 mg tablet 40 mg PO DAILY #90 tabs 01/23/23 02/25/23 Rx finasteride 5 mg tablet See Rx Instructions .Route .COMPLEX 02/25/23 02/25/23 History Allergies Allergy/AdvReac Type Severity Reaction Status Date / Time No Known Drug Allergies Allergy Verified 12/20/22 13:43 Exam Vital Signs (past 8 hours): - 02/25/23 13:58 02/25/23 14:20 02/25/23 14:21 Temperature 97.5 F L Pulse Rate 49 L 45 L 57 L Respiratory Rate 16 26 H 21 Blood Pressure 121/59 L Pulse Oximetry 97 97 97 Oxygen Delivery Method Room Air Room Air 02/25/23 14:21 02/25/23 14:22 02/25/23 14:24 Temperature Pulse Rate 43 L 42 L 56 L Respiratory Rate 14 16 Blood Pressure 148/66 H 148/66 H Pulse Oximetry 98 97 Oxygen Delivery Method Room Air 02/25/23 14:24 02/25/23 14:25 02/25/23 14:25 Temperature Pulse Rate 42 L Respiratory Rate 15 Blood Pressure 166/69 H 154/70 H Pulse Oximetry 97 Oxygen Delivery Method Room Air 02/25/23 14:30 02/25/23 14:30 02/25/23 14:35 Temperature Pulse Rate 49 L Respiratory Rate 12 Blood Pressure 136/67 129/62 Pulse Oximetry 98 Oxygen Delivery Method 02/25/23 14:35 02/25/23 14:40 02/25/23 14:40 Temperature Pulse Rate 42 L 44 L Respiratory Rate 17 19 Blood Pressure 140/62 Pulse Oximetry 97 97 Oxygen Delivery Method Room Air Room Air 02/25/23 14:46 02/25/23 14:46 02/25/23 14:50 Temperature Pulse Rate 45 L 42 L Respiratory Rate 16 13 Blood Pressure 147/69 H Pulse Oximetry 98 98 Oxygen Delivery Method Room Air 02/25/23 14:50 02/25/23 15:00 02/25/23 15:00 Temperature Pulse Rate 45 L Respiratory Rate 14 Blood Pressure 164/69 H 152/68 H Pulse Oximetry 97 Oxygen Delivery Method 02/25/23 15:10 02/25/23 15:10 02/25/23 15:20 Temperature Pulse Rate 47 L Respiratory Rate 23 Blood Pressure 154/67 H 153/71 H Pulse Oximetry 97 Oxygen Delivery Method 02/25/23 15:20 02/25/23 15:30 02/25/23 15:30 Temperature Pulse Rate 50 L 54 L Respiratory Rate 22 15 Blood Pressure 156/67 H Pulse Oximetry 98 97 Oxygen Delivery Method Room Air 02/25/23 15:40 02/25/23 15:40 02/25/23 15:50 Temperature Pulse Rate 48 L 45 L Respiratory Rate 14 14 Blood Pressure 150/65 H Pulse Oximetry 97 97 Oxygen Delivery Method 02/25/23 15:50 02/25/23 16:00 02/25/23 16:00 Temperature Pulse Rate 44 L Respiratory Rate 14 Blood Pressure 143/64 H 121/58 L Pulse Oximetry 97 Oxygen Delivery Method 02/25/23 16:10 02/25/23 16:10 02/25/23 16:20 Temperature Pulse Rate 41 L 47 L Respiratory Rate 12 20 Blood Pressure 142/60 H Pulse Oximetry 99 98 Oxygen Delivery Method 02/25/23 16:20 02/25/23 16:30 02/25/23 16:30 Temperature Pulse Rate 45 L Respiratory Rate 18 Blood Pressure 142/66 H 138/65 Pulse Oximetry 97 Oxygen Delivery Method Oxygen Delivery Method Room Air Narrative Exam Narrative: Gen: alert, pleasant NAD HEENT: anicteric Neck: no soft tissue masses Lungs: CTA CV: regular, no murmur Abd: nt, no HSM, no mass Ext: no pedal edema Neuro: nl affect and speech Objective Labs 02/25/23 13:52 02/25/23 13:52 Labs: Laboratory Results - last 24 hr 02/25/23 02/25/23 13:52 14:06 WBC 8.9 RBC 4.48 L Hgb 13.8 Hct 41.5 MCV 92.8 MCH 30.9 MCHC 33.3 RDW 14.2 Plt Count 243 Neut % (Auto) 75.7 H Lymph % (Auto) 14.4 L Garland % (Auto) 6.6 Eos % (Auto) 2.9 Baso % (Auto) 0.4 Neut # (Auto) 6800 Lymph # (Auto) 1300 Garland # (Auto) 600 Eos # (Auto) 300 Baso # (Auto) 0 PT 12.9 H INR 1.1 APTT 28 Sodium 138 Potassium 4.4 Chloride 100 Carbon Dioxide 27 BUN 30 H Creatinine 1.90 H Estimated GFR 34 L BUN/Creatinine Ratio 15.8 Glucose 184 H Calcium 9.4 Magnesium 2.4 H Total Creatine Kinase 88 Troponin I < 0.012 SARS-CoV-2 (PCR) Negative Assessment & Plan Assessment & Plan narrative: 1. Acute bradycardia, sinus to junctional -likely due to combination of taking carvedilol and diltiazem -stop carvedilol and diltiazem which should allow HR to recover -hx first degree AVB on outpatient EKG -TSH nl in 01/11 -telemetry -atropine prn for any progression to more symptomatic bradycardia or high grade block 2. Essential hypertension -probably best to permanently d/c diltiazem -likely restart carvedilol 3.125 mg bid on discharge -cont valasartan 80 mg bid -per cardiology visit note pt has hx of leg edema on amlodipine, dizziness and hypotension on terazosin; pt was also on chlorthalidone at some point as well and it was discontinued -pt reports sig BP elevations up to 180 systolic in the mornings; he doesn't recall any terrible side effects on amlodipine and would be willing to try it again to replace diltiazem since amlodipine is much less likely to cause bradycardia and pedal edema may be tolerable 3. CKD -stable, Cr 1.9 (per nephrology visit note Cr range 1.4 - 1.8) Admit: Obs DVT prevention: SQ heparin Code status: DNR on POLST, confirmed current wishes with patient Admit: observation
--- NOTE | 2023-02-25 18:47 | PC.NURSE ---
Admit note: Received patient from ED, A & O x 4. Placed on Tele and SCDs. Excellent PO intake. Generalized weakness and fatigue noted. FWW and urinal provided for safety. Tele: NSR 1st AV Block, HR 78. Asymptomatic. Oriented to room, environment, and plan of care. Dr. Salguero at bedside. High fall risk precautions maintained, call light within reach.
[2023-02-25] MEDS: VALSARTAN 80 MG TABLET PO (20:13)
[2023-02-26] VITALS: BP 136/82; PULSE 79; RESP 16; TEMP 37; O2SAT 98
[2023-02-26 04:00] VITALS: BP 140/76; PULSE 80; RESP 16; TEMP 36.4; O2SAT 98
[2023-02-26 07:04] VITALS: BP 179/79; PULSE 88; RESP 16; TEMP 37.1; O2SAT 96
[2023-02-26 07:34] VITALS: BP 166/72; PULSE 81; RESP 18; TEMP 36.6; O2SAT 97
[2023-02-26 08:29] LABS: Add Manual Diff / Slide Review NO; Basophils Absolute Auto 0 /uL (0-100); Basophils Percent Auto 0.4 % (0-2); Eosinophils Absolute Auto 200 /uL (0-450); Eosinophils Percent Auto 2.9 % (2-4); Hematocrit 39.6 % (41-53); Hemoglobin 13.4 g/dL (13.5-17.5); Lymphocytes Absolute Auto 1300 /uL (1100-4500); Lymphocytes Percent Auto 15.6 % (25-40); Mean Corpuscular HGB Conc 33.9 % (30-36); Mean Corpuscular Hemoglobin 31.5 PG (26-34); Monocytes Absolute Auto 900 /uL (0-900); Neutrophils Absolute Auto 6100 /uL (1500-7000); Neutrophils Percent Auto 71.1 % (50-75); Platelet Count 170 X10^3/uL (150-400); Red Blood Cell Count 4.25 X10^6/uL (4.5-5.9); Red Cell Distribution Width 13.9 % (11.6-14.8); White Blood Cell Count 8.6 X10^3/uL (4.5-11.0)
[2023-02-26 08:37] LABS: BUN Creatinine Ratio 18.4 (6-22); Blood Urea Nitrogen 29 mg/dL (9-20); Calcium 9.6 mg/dL (8.4-10.2); Carbon Dioxide 27 mmol/L (22-32); Chloride 105 mmol/L (98-107); Estimated Glomerular Filt Rate 42 mL/min (>60); Glucose 105 mg/dL (80-110); HEMOLYSIS < 15 (0-50); Potassium 4.6 mmol/L (3.4-5.1); Sodium 139 mmol/L (137-145)
[2023-02-26] MEDS: SERTRALINE 50 MG TABLET PO (09:48)
[2023-02-26] MEDS: carvediloL 3.125 MG TABLET PO (09:48)
[2023-02-26] MEDS: FINASTERIDE 5 MG TABLET PO (09:48)
[2023-02-26] MEDS: ATORVASTATIN 20 MG TABLET 40 MG PO (09:48)
[2023-02-26] MEDS: ASPIRIN EC 81 MG TABLET PO (09:48)
[2023-02-26] MEDS: VALSARTAN 80 MG TABLET PO (09:49)
--- NOTE | 2023-02-26 10:26 | PM.DS.1 ---
History of Present Illness History of Present Illness Date Patient Seen: 02/25/23 Time Patient Seen: 16:00 Chief complaint: weakness Narrative: 87 yo male with distant hx of atrial flutter s/p ablation in 2010, CAD s/p mid LAD stent 04/22, hypertension, hyperlipidemia, CKD, BPV, anxiety developed sudden onset of weakness and near syncope while at [facility] this morning. EMS called and noted HR in 30's with pt in junctional appearing rhythm. Pt was given 0.5 mg atropine with HR recovering to the 50's. In ED, HR has been 30's to 50 range in a sinus bull to junctional rhythm with PACs. Pt states he feel lightheaded. Pt is not sure if he accidentally took extra of his pills this morning. Otherwise has been feeling well. Pt has been on carvedilol and diltiazem for a long time. Per outpatient cardiology note EKG in October 2022 showed s bull rate 58 with first degree AVB. Discharge Providers Provider Date of admission: 02/25/23 16:13 Discharge Date: 02/26/23 Primary care physician: Dk Rivera MD Discharge provider: Viral Gonzales DO Summary Hospital Course Discharge Diagnosis: Acute bradycardia, sinus to junctional -likely due to combination of taking carvedilol and diltiazem -stop carvedilol and diltiazem which should allow HR to recover -hx first degree AVB on outpatient EKG -TSH nl in 01/11 -telemetry -atropine prn for any progression to more symptomatic bradycardia or high grade block Essential hypertension -probably best to permanently d/c diltiazem -restarted carvedilol 3.125 mg bid on discharge -cont valasartan 80 mg bid -per cardiology visit note pt has hx of leg edema on amlodipine, dizziness and hypotension on terazosin; pt was also on chlorthalidone at some point as well and it was discontinued -pt reports sig BP elevations up to 180 systolic in the mornings; he doesn't recall any terrible side effects on amlodipine and would be willing to try it again to replace diltiazem since amlodipine is much less likely to cause bradycardia and pedal edema may be tolerable -f/up with Dr. Rivera and Dr. Freitas to assess after starting amlodipine CKD -stable, Cr 1.9 (per nephrology visit note Cr range 1.4 - 1.8) History of a.flutter ablation s/p ablation -pt hasn't had known recurrence since his ablation in 2010 History of CAD -denies angina, nl troponin, no ischemic changes on EKG Hospital Course: Admitted with bradycardia and presyncope. Atropine improved HR and his coreg and dilt were held. HR remained stable at 80's. Restarted coreg on discharge for BP control. Added amlodipine in place of dilt. Johnathon will f/up with his PCP and Dr. Freitas cardiology. Exam Vital Signs (past 8 hours): - 02/26/23 04:00 02/26/23 07:04 02/26/23 07:34 Temperature 97.6 F 98.8 F 97.9 F Pulse Rate 80 88 81 Respiratory Rate 16 16 18 Blood Pressure 140/76 179/79 H 166/72 H Pulse Oximetry 98 96 97 Oxygen Flow Rate 0 0 0 Oxygen Delivery Method Room Air Oxygen Flow Rate 0 Narrative Exam Narrative: Gen: alert, pleasant NAD HEENT: anicteric Neck: no soft tissue masses Lungs: CTA CV: regular, no murmur Abd: nt, no HSM, no mass Ext: no pedal edema Neuro: nl affect and speech Objective Labs 02/26/23 07:45 02/26/23 07:45 Labs: Laboratory Results - last 24 hr 02/25/23 02/25/23 02/26/23 13:52 14:06 07:45 WBC 8.9 8.6 RBC 4.48 L 4.25 L Hgb 13.8 13.4 L Hct 41.5 39.6 L MCV 92.8 93.0 MCH 30.9 31.5 MCHC 33.3 33.9 RDW 14.2 13.9 Plt Count 243 170 Neut % (Auto) 75.7 H 71.1 Lymph % (Auto) 14.4 L 15.6 L [place] % (Auto) 6.6 10.0 Eos % (Auto) 2.9 2.9 Baso % (Auto) 0.4 0.4 Neut # (Auto) 6800 6100 Lymph # (Auto) 1300 1300 [place] # (Auto) 600 900 Eos # (Auto) 300 200 Baso # (Auto) 0 0 PT 12.9 H INR 1.1 APTT 28 Sodium 138 139 Potassium 4.4 4.6 Chloride 100 105 Carbon Dioxide 27 27 BUN 30 H 29 H Creatinine 1.90 H 1.58 H Estimated GFR 34 L 42 L BUN/Creatinine Ratio 15.8 18.4 Glucose 184 H 105 Calcium 9.4 9.6 Magnesium 2.4 H Total Creatine Kinase 88 Troponin I < 0.012 SARS-CoV-2 (PCR) Negative PFSH Medical History Primary osteoarthritis involving multiple joints History of nonmelanoma skin cancer Do not resuscitate Borderline glaucoma Ocular migraine BPPV (benign paroxysmal positional vertigo) Erectile dysfunction Depression, major, recurrent Generalized anxiety disorder Stage 3b chronic kidney disease (CKD) Mixed hyperlipidemia Essential hypertension History of atrial flutter Fractures (~194) Mumps Measles Herpes Chicken pox Kidney disease Skin cancer (~2014) BPH w urinary obs/LUTS CAD (coronary artery disease) Surgical History S/P ablation of atrial flutter Anesthesia History of coronary artery stent placement (~2011) Family History Father History of heart disease Hyperlipidemia Brother History of heart bypass surgery Social History marital status: number of children: 1 household members: none Smoking Status: Former smoker Smokeless tobacco user: other alcohol intake: never caffeine: Yes Discharge Plan Discharge Plan Patient Disposition: Home Provider Discharge Comment: You were admitted with low heart rate. We discontinued your diltiazem after speaking with cardiology. In place of it we added amlodipine for your blood pressure. You may continue your coreg. Please follow-up with Dr. Rivera and Dr. Freitas. Discharge orders & Medications Prescriptions: New amlodipine 5 mg tablet 5 mg PO DAILY Qty: 30 0RF Continued nitroglycerin 0.4 mg tablet, sublingual 0.4 mg sublingual Q5-15M PRN (Reason: chest pain) Qty: 25 0RF Rx Instructions: do not exceed 3 doses per episode alprazolam 0.25 mg tablet 0.25 mg PO BEDTIME PRN (Reason: sleep) Qty: 30 5RF carvedilol 6.25 mg tablet 3.125 mg PO BID Qty: 90 3RF Rx Instructions: must administer with a meal/food sertraline [Zoloft] 50 mg tablet 50 mg PO QDAY Qty: 90 3RF atorvastatin 40 mg tablet 40 mg PO DAILY Qty: 90 3RF aspirin 81 mg tablet,delayed release (DR/EC) 81 mg PO DAILY valsartan 160 mg tablet 80 mg PO BID (DME) Parking Permit... See Rx Instructions .Route .MEDSUPPLY Qty: 1 0RF Rx Instructions: As directed finasteride 5 mg tablet See Rx Instructions .ROUTE .COMPLEX Rx Instructions: orally ;5mg every other day cholecalciferol (vitamin D3) 1 tab PO DAILY yddwhekigdbr-krd-frya-FA-vit K [Adults Multivitamin] 1 tab PO DAILY omega-3 fatty acids [Fish Oil] 1 cap PO DAILY Discontinued diltiazem HCl 180 mg capsule,extended release 24hr 180 mg PO DAILY Qty: 90 1RF Follow up/Referrals: Dk Rivera MD [Primary Care Provider] - 1 Week Visit Report/Discharge Packet Instructions: DI for Syncope in Adults (Fainting), Fainting Stand Alone Forms: Patient Portal/API, Stroke Signs & Symptoms Discharge Data Primary Care Provider: Dk Rivera V Attending Provider: Lio Salguero Admit Date/Time: 02/25/23 16:13
--- NOTE | 2023-02-26 10:42 | CM.DANOTE ---
DCP Assessment Note Pt is a 87yo M here due to weakness/lightheadedness/bradycardia. PCP Nicole Lyons [employer] and self pay MASTER CONTROL ENGINEER reviewed EMR. Pt lives on [address]. Per provider, set to dc home today. MASTER CONTROL ENGINEER entered room and introduced self and role. Pt sitting up in chair and getting dressed to dc home. Accompanied by landlord at bedside to transport home, in a [place] to [place] ferry. Pt lives alone and is indep at baseline/drives. Pt up and moving around room during conversation, eager to leave. reports no CM needs. Plan: home with landlord to transport today. No CM needs identified. CM team will follow as needed. ZOILA Ocasio Discharge Planning/Care Management CM Discharge Assessment Start: 02/26/23 10:42 Freq: Status: Active Protocol: Document 02/26/23 10:42 (Rec: 02/26/23 10:42 [id number]) Discharge Planning Assessment Assigned Blueprint Cutter ZOILA Leon Advance Directives? No: POLST on file History Provided By Patient Prior Living Arrangements Apartment/Condo Household Members none Type of transporation used prior to Drives own vehicle admit Independent with ADL's Yes Is patient alert and oriented? Yes Barriers to Discharge No Discharge Plan Home Transportation Arrangement friend in POV Referrals Initiated None needed Whiteboard Updated in Patient Room with Yes name and ext. # of Blueprint Cutter Review Status In Process Next Review Type Continued Stay Review
--- NOTE | 2023-02-26 10:59 | PC.NURSE ---
Patient just discharged. Ivs taken out by shared services and outsourcing manager. Out to ride in a wheelchair.
== END 2023-02-26 10:50 | disposition home or self-care (01) ==
LOC: ED 16:14 → AC 16:15
PROVIDERS: Student in an Organized Health Care Education/Training Program; Admitting Provider Internal Medicine; Emergency Provider Emergency Medicine; Family Provider Internal Medicine; PCP Internal Medicine; Referring Provider Emergency Medicine; Visit Provider Internal Medicine
DX: R55 Syncope and collapse (principal); R00.1 Bradycardia, unspecified; I12.9 Hypertensive chronic kidney disease with stage 1 through stage 4 chronic kidney disease, or unspecified chronic kidney disease; N18.9 Chronic kidney disease, unspecified
CPT/HCPCS: 36415; 80048; 82550; 82962; 83735; 84484; 85025; 85610; 85730; 87635; 93005; 93010; 99283; 99284; C9803; G0378

== ENCOUNTER → 2023-05-25 14:55 | Outpatient (CLI) | payer OTHER, SELFPAY ==
[2023-02-25 18:15] VITALS: BMI 25.9
[2023-05-25 15:42] LABS: Hematocrit 38.4 % (41-53); Hemoglobin 13.2 g/dL (13.5-17.5)
[2023-05-25 16:37] LABS: BUN Creatinine Ratio 18.5 (6-22); Blood Urea Nitrogen 29 mg/dL (9-20); Calcium 9.6 mg/dL (8.4-10.2); Carbon Dioxide 31 mmol/L (22-32); Chloride 106 mmol/L (98-107); Estimated Glomerular Filt Rate 42 mL/min (>60); Glucose 100 mg/dL (80-110); HEMOLYSIS < 15 (0-50); Sodium 141 mmol/L (137-145)
[2023-05-25 16:38] LABS: Potassium 5.4 mmol/L (3.4-5.1)
[2023-05-25 16:42] LABS: Creatinine Urine Random 192.3 mg/dL; Protein (Total) Urine Random 19 mg/dL (0-12); Protein Creatinine Ratio Urine 0.09 GRAM/24H
[2023-05-29 06:18] LABS: Parathyroid Hormone Int 87 pg/mL (15-65)
== END ==
PROVIDERS: Family Provider Internal Medicine; PCP Internal Medicine; Referring Provider Student in an Organized Health Care Education/Training Program; Visit Provider Student in an Organized Health Care Education/Training Program
DX: N05.9 Unspecified nephritic syndrome with unspecified morphologic changes (principal); D70.9 Neutropenia, unspecified; D63.1 Anemia in chronic kidney disease; R80.9 Proteinuria, unspecified; N25.81 Secondary hyperparathyroidism of renal origin
CPT/HCPCS: 36415; 80048; 82570; 83970; 84156; 85014; 85018

== ENCOUNTER → 2023-05-31 13:36 | Outpatient (CLI) | payer OTHER, SELFPAY ==
[2023-02-25 18:15] VITALS: BMI 25.9
[2023-05-31 16:22] LABS: HEMOLYSIS < 15 (0-50); Potassium 4.1 mmol/L (3.4-5.1)
== END ==
PROVIDERS: Family Provider Internal Medicine; PCP Internal Medicine; Referring Provider Student in an Organized Health Care Education/Training Program; Visit Provider Student in an Organized Health Care Education/Training Program
DX: E87.5 Hyperkalemia (principal)
CPT/HCPCS: 36415; 84132

== ENCOUNTER → 2023-06-26 07:27 | Outpatient (CLI) | payer OTHER, SELFPAY ==
[2023-02-25 18:15] VITALS: BMI 25.9
--- NOTE | 2023-06-26 07:28 | DI.ECHO.S_ITS ---
[facility]---------+ [facility] : : [address] : : [place] : : [id number] : : Phone: [phone] Echocardiogram Report + + :Name: ADAN HOLDEN Study Date: 06/26/2023 Height: 74 in : :[facility] ReadingLocation: Weight: 200 lb : : Gender: Male BSA: 2.2 m2 : :: 1935 Age: 87 yrs BP: 137/86 mmHg: :Reason For Study: SHORTNESS OF BREATH : :Ordering Physician: TACO, : :PROSPER Apodaca Performed By: Amanda Hernández : :Referring: PROSPER ESPAÑA W : + + Interpretation Summary The left ventricle is normal in size and wall thickness. The left ventricular ejection fraction is normal. The ejection fraction is estimated to be 55-60%. No significant change in LVEF from the previous study. The right ventricle is normal in size and function. There is mild aortic regurgitation. Compared to the prior echo study, there has been no change in the severity of aortic regurgitation. Procedure: A two-dimensional transthoracic echocardiogram with color flow and Doppler was performed. The study quality was technically difficult. Comparison is made with the echocardiogram of 07/04/2021. A contrast injection of Definity was performed to improve assessment of LV function. The patient was in sinus rhythm with heart rates between 56-65 bpm during the exam. Intermittent PVCs. Left Ventricle: The left ventricle is normal in size and wall thickness. There is no thrombus. A false chord is noted (normal variant). The ejection fraction is estimated to be 55-60%. The left ventricular ejection fraction is normal. There are no focal wall motion abnormalities. LV dyssynchrony during PVCs. Diastolic parameters suggest a relaxation abnormality of the left ventricle, consistent with probable normal filling pressures. Right Ventricle: The right ventricle is normal in size and function. Atria: The left atrium is mildly dilated. The left atrium has mildly decreased in size since the prior echo exam. Right atrial size is normal. There is no Doppler evidence for an interatrial shunt. Mitral Valve: There is mild mitral annular calcification. There is trace mitral regurgitation. Aortic Valve: The aortic valve is trileaflet. The aortic valve opens well. There is no aortic valve stenosis. There is mild aortic regurgitation. Compared to the prior echo study, there has been no change in the severity of aortic regurgitation. Tricuspid Valve: The tricuspid valve is normal. There is trace tricuspid regurgitation. Pulmonary artery pressures cannot be estimated because of the lack of a measurable TR jet velocity. Pulmonic Valve: The pulmonic valve is not well visualized. There is no pulmonic valvular regurgitation. Great Vessels: The aortic root is normal size. The dimensions of the ascending aorta are normal. Aortic arch was not well-visualized. The inferior vena cava was not visualized. Pericardium/ Pleura There is no pericardial effusion. There is no pleural effusion. MMode/2D Measurements & Calculations LVIDd: 4.7 cm LVOT diam: 2.4 cm LVIDs: 3.4 cm Ao root diam: 3.4 cm FS: 27.0 % asc Aorta Diam: 3.3 cm IVSd: 0.97 cm LVPWd: 0.77 cm LV davalos. diameter/BSA (cm/m^2): 2.1 LV sys. diameter/BSA (cm/m^2): 1.6 LA A2 area: 27.0 cm2 RA long axis: 6.3 cm LA A4 area: 22.3 cm2 RA area: 18.5 cm2 LA length (vol): 6.1 cm RA vol: 46.6 ml LA vol: 83.4 ml RA : 21.4 ml/m2 LA vol index: 38.4 ml/m2 RVD1 (basal): 3.2 cm RVD2 (mid): 3.0 cm TAPSE: 2.0 cm Doppler Measurements & Calculations Ao V2 max: 100.5 cm/sec LVOT Max Fitz: 66.1 cm/sec Ao V2 mean: 77.6 cm/sec LV V1 max P.7 mmHg Ao max P.0 mmHg LV V1 VTI: 17.1 cm Ao mean P.6 mmHg YOVANY(I,D): 3.0 cm2 Ao V2 VTI: 25.1 cm YOVANY(V,D): 2.9 cm2 sev ratio: 0.68 YOVANY indexed to BSA (cm^2/m^2): 1.4 MV E max fitz: 59.4 cm/sec PA V2 max: 84.7 cm/sec MV A max fitz: 59.8 cm/sec PA V2 mean: 64.8 cm/sec MV E/A: 0.99 PA mean P.8 mmHg Med Peak E' Fitz: 5.4 cm/sec PA pr(Accel): 24.2 mmHg E/E' med: 11.1 Lat Peak E' Fitz: 5.9 cm/sec E/E' lat: 10.0 E/e' average: 10.6 MV dec time: 0.26 sec SV(LVOT): 75.1 ml Reading Physician:05:28 PM
--- NOTE | 2023-06-26 07:29 | DI.NM.S_ITS ---
PROCEDURE: NM CLARENCE PERF SPECT R&S PHARM Rest and pharmacological stress myocardial perfusion SPECT with gated imaging and ejection fraction RADIOPHARMACEUTICAL: 11.7 mCi Tc-99m tetrafosmin IV at rest and 24.7 mCi Tc-99m tetrafosmin IV at peak effect of pharmacological stress. Gyp-hss-gwgmmktw was performed. INDICATIONS: Shortness of breath TECHNIQUE: Radiopharmaceutical was injected at peak stress test, and also at rest. SPECT images were obtained. SPECT myocardial perfusion images were displayed in short axis, horizontal long axis, and vertical long axis views. Gated images were reviewed using Zouxiu software. COMPARISON: None. CARDIAC STRESS: A pharmacologic stress test was performed under the supervision of an attending staff, using an infusion of lexiscan. Hemodynamic data: There is normal blood pressure and heart rate response to pharmacologic stress. Symptoms: The patient denied anginal chest pain. Aminophylline: none EKG: No diagnostic changes of ischemia; frequent PVCs present. FINDINGS: Raw data: There is good myocardial uptake of radiotracer. No significant motion artifacts. Tywp-cs-ydqhi ratio is 0.29 (normal is less than 0.38 for tetrafosmin tracer). Left ventricle function: Gated images demonstrate normal left ventricular wall thickening. No segmental wall motion abnormalities. No transient ischemic dilation; TID is 0.75 (normal less than 1.3). Left ventricle resting end diastolic volume is 113 mL. Left ventricle stress ejection fraction is 72%; normal range is above 45%. Myocardial perfusion: There is a mildly intense inferior wall defect at rest that improves with stress, suggesting artifact but old non-transmural infarction can't be definitively excluded given absence of prone images. SSS 2, SRS 3. Patient declined prone imaging. IMPRESSION: Low risk, probably normal pharm nuclear stress test 1) There is a mildly intense inferior wall defect at rest that improves with stress, suggesting artifact but old non-transmural infarction can't be definitively excluded given absence of prone images. SSS 2, SRS 3. Patient declined prone imaging. 2) Normal left ventricular size, wall motion, and systolic function (EF post stress 72%). 3) No angina during the study. 4) No ST changes with lexiscan. Frequent PVCs present during the study. 5) Reduced exercise tolerance (4.6 METs). Since patient couldn't keep up with the treadmill, study converted to lexiscan as only 64% of maximum predicted heart rate achieved using treadmill. Dictated by: Cherelle Millan MD on 06/26/2023 at 16:00 Approved by: Cherelle Millan MD on 06/26/2023 at 16:05
== END ==
PROVIDERS: Family Provider Internal Medicine; PCP Internal Medicine; Referring Provider Nurse Practitioner; Visit Provider Nurse Practitioner
DX: Z95.5 Presence of coronary angioplasty implant and graft (principal); I25.10 Atherosclerotic heart disease of native coronary artery without angina pectoris; R06.02 Shortness of breath; R94.39 Abnormal result of other cardiovascular function study; I35.1 Nonrheumatic aortic (valve) insufficiency
CPT/HCPCS: 78452; 93017; A9502; C8929; J2785; Q9957

== ENCOUNTER → 2023-06-27 14:58 | Outpatient (CLI) | payer OTHER, SELFPAY ==
[2023-02-25 18:15] VITALS: BMI 25.9
[2023-06-27 15:16] LABS: Hematocrit 38.7 % (41-53); Hemoglobin 13.1 g/dL (13.5-17.5); Mean Corpuscular HGB Conc 33.8 % (30-36); Mean Corpuscular Hemoglobin 31.1 PG (26-34); Platelet Count 231 X10^3/uL (150-400); Red Cell Distribution Width 13.6 % (11.6-14.8); White Blood Cell Count 6.6 X10^3/uL (4.5-11.0)
[2023-06-27 15:47] LABS: Erythrocyte Sedimentation Rate 10 MM/HR (0-15)
[2023-06-27 15:57] LABS: BUN Creatinine Ratio 20.1 (6-22); Blood Urea Nitrogen 32 mg/dL (9-20); C-Reactive Protein Quant < 0.5 mg/dL (<1.0); Calcium 9.4 mg/dL (8.4-10.2); Carbon Dioxide 29 mmol/L (22-32); Chloride 105 mmol/L (98-107); Estimated Glomerular Filt Rate 41 mL/min (>60); Glucose 112 mg/dL (80-110); HEMOLYSIS < 15 (0-50); Potassium 4.3 mmol/L (3.4-5.1); Sodium 141 mmol/L (137-145)
== END ==
PROVIDERS: Family Provider Internal Medicine; PCP Internal Medicine; Referring Provider Internal Medicine; Visit Provider Internal Medicine
DX: M35.3 Polymyalgia rheumatica (principal); N18.32 Chronic kidney disease, stage 3b
CPT/HCPCS: 36415; 80048; 85027; 85651; 86140

== ENCOUNTER → 2024-04-29 14:32 | Outpatient (CLI) | payer MEDICARE, SELFPAY ==
[2023-02-25 18:15] VITALS: BMI 25.9
[2024-04-29 15:27] LABS: Cholesterol 161 mg/dL (140-199); HDL Cholesterol 58 mg/dL (40-60); LDL Cholesterol Calculated 79 mg/dL (<100); Triglycerides 122 mg/dL (35-150)
== END ==
PROVIDERS: Family Provider Internal Medicine; PCP Internal Medicine; Referring Provider Internal Medicine Cardiovascular Disease; Visit Provider Internal Medicine Cardiovascular Disease
DX: E78.5 Hyperlipidemia, unspecified (principal)
CPT/HCPCS: 36415; 80061

== ENCOUNTER 2024-06-29 18:46 | Emergency (ER) | payer MEDICARE, SELFPAY ==
[2023-02-25 18:15] VITALS: BMI 25.9
[2024-06-29] VITALS (18 sets, daily range): BP systolic 133–217; BP diastolic 61–95; PULSE 74–83; RESP 13–25; TEMP 36.4; O2SAT 96–98; BMI 25.7
--- NOTE | 2024-06-29 19:33 | EKG_ITS ---
[facility] [id number] [address] Test Date: 2024-06-29 Pat Name: Blane Headley Department: Room: Gender: Male Appellate [address] Clerk: ERNESTO : 1935 Requested By: Order Number: [id number] Reading MD: Jose Hoskins MD Measurements Intervals [place] Rate: 79 P: 38 CO: 206 QRS: 43 QRSD: 86 T: 31 QT: 404 QTc: 463 Interpretive Statements Normal sinus rhythm Nonspecific ST abnormality Electronically Signed On 06-30-2024 7:28:54 PDT by Jose Hoskins MD
--- NOTE | 2024-06-29 19:33 | DI.RAD.S_ITS ---
PROCEDURE: XR CHEST 1V INDICATIONS: chest pain,hypertension TECHNIQUE: One view of the chest was acquired. COMPARISON: [facility], CR, XR CHEST 2V, 06/16/2024, 14:55. FINDINGS: Surgical changes and devices: Dual lead left-sided transvenous pacemaker. Lungs and pleura: Significant, asymmetric left hemidiaphragm elevation. Mild haziness diffusely in the right upper lobe. No other acute consolidations. Atelectatic changes at the left mid lung. No pneumothorax Mediastinum: The mediastinal contour is stable. Heart is not well seen due to left hemidiaphragm opacification. No significant central venous congestion. Calcified right hilar nodes. Bones and chest wall: No suspicious bony lesions. Overlying soft tissues appear unremarkable. IMPRESSION: Mild hazy peripheral opacity in the right lateral upper lobe. Acute inflammation/infection cannot be excluded. Otherwise stable chest with left hemidiaphragm elevation. Dictated by: Renetta Wang M.D. on 06/29/2024 at 20:03 Approved by: Renetta Wang M.D. on 06/29/2024 at 20:05
--- NOTE | 2024-06-29 19:42 | PC.NURSE ---
Pt reports feeling off and funny which began while he was looking through family photos while packing up to move. Pt reports feeling very stressed about moving. Daughter at bedside. Pt had Lemon Pacemaker placed on 05/23/24 at [facility]. Pt denies chest pain, denies SOB, denies vision changes. He is alert and oriented.
[2024-06-29 19:43] LABS: Add Manual Diff / Slide Review NO; Basophils Absolute Auto 100 /uL (0-100); Basophils Percent Auto 1.3 % (0-2); Eosinophils Absolute Auto 400 /uL (0-450); Eosinophils Percent Auto 5.6 % (2-4); Hematocrit 38.2 % (41-53); Lymphocytes Absolute Auto 1000 /uL (1100-4500); Lymphocytes Percent Auto 15.1 % (25-40); Mean Corpuscular HGB Conc 33.9 % (30-36); Mean Corpuscular Hemoglobin 31.2 PG (26-34); Monocytes Absolute Auto 800 /uL (0-900); Monocytes Percent Auto 11.4 % (3-14); Neutrophils Absolute Auto 4400 /uL (1500-7000); Neutrophils Percent Auto 66.6 % (50-75); Platelet Count 199 X10^3/uL (150-400); Red Blood Cell Count 4.15 X10^6/uL (4.5-5.9); Red Cell Distribution Width 14.9 % (11.6-14.8); White Blood Cell Count 6.7 X10^3/uL (4.5-11.0)
[2024-06-29 19:47] LABS: Alanine Aminotransferase 50 IU/L (<50); Albumin 3.9 g/dL (3.5-5.0); Albumin Globulin Ratio 1.3 (1.0-2.8); Alkaline Phosphatase 154 U/L (38-126); Aspartate Aminotransferase 47 IU/L (17-59); BUN Creatinine Ratio 21.6 (6-22); Bilirubin Total 0.6 mg/dL (0.2-1.3); Blood Urea Nitrogen 24 mg/dL (9-20); Calcium 9.1 mg/dL (8.4-10.2); Carbon Dioxide 27 mmol/L (22-32); Chloride 106 mmol/L (98-107); Creatine Kinase 54 U/L (55-170); Estimated Glomerular Filt Rate > 60 mL/min (>60); Globulin 2.9 g/dL (1.7-4.1); Glucose 114 mg/dL (70-99); HEMOLYSIS < 15 (0-50); Lipase 82 U/L (23-300); Potassium 4.1 mmol/L (3.4-5.1); Sodium 138 mmol/L (137-145); Total Protein 6.8 g/dL (6.3-8.2)
[2024-06-29 19:59] LABS: Troponin I < 0.012 ng/mL (0.01-0.034)
[2024-06-29] MEDS: hydrALAZINE 20 MG/ML VIAL 5 MG IV (20:08)
--- NOTE | 2024-06-29 20:31 | ED_ITS ---
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 No chest pain or shortness of breath. No fevers or chills. Pacemaker site seems to be doing well, without redness pain or drainage. Related Data Home Medications Medication Instructions Recorded Confirmed aspirin 81 mg tablet,delayed 81 mg PO DAILY 12/19/21 06/24/24 release cholecalciferol (vitamin D3) 1 tab PO DAILY 12/19/21 06/24/24 [id number]-vit K 1 tab PO DAILY 12/19/21 06/24/24 [Adults Multivitamin] omega-3 fatty acids [Fish Oil] 1 cap PO DAILY 12/19/21 06/24/24 latanoprost 0.005 % eye drops 1 drp EYE-BOTH DAILY 06/27/23 06/24/24 Previous Rx's Medication Instructions Recorded Parking Permit... #1 ea 12/20/22 atorvastatin 40 mg tablet 40 mg PO DAILY #90 tabs 06/24/24 carvedilol 6.25 mg tablet 6.25 mg PO BID #180 tabs 06/24/24 diltiazem HCl 120 mg 120 mg PO DAILY #90 caps 06/24/24 capsule,extended release 24 hr, controlled (DILT-XR) finasteride 5 mg tablet 5 mg PO .EOD #45 tabs 06/24/24 hydralazine 10 mg tablet 10 mg PO BID #180 tabs 06/24/24 nitroglycerin 0.4 mg sublingual 0.4 mg sublingual Q5-15M PRN chest 06/24/24 tablet pain #25 tabs sertraline 50 mg tablet 50 mg PO DAILY #90 tabs 06/24/24 valsartan 40 mg tablet 40 mg PO DAILY #90 tabs 06/24/24 Allergies Allergy/AdvReac Type Severity Reaction Status Date / Time No Known Drug Allergies Allergy Verified 06/29/24 19:01 Patient History Medical History (Updated 06/29/24 @ 21:38 by Lauri Walters MD) Mobitz type 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 History of nonmelanoma skin cancer Do not resuscitate Borderline glaucoma Ocular migraine BPPV (benign paroxysmal positional vertigo) Erectile dysfunction Depression, major, recurrent Generalized anxiety disorder Stage 3b chronic kidney disease (CKD) Mixed hyperlipidemia Essential hypertension History of atrial flutter Fractures (~194) Mumps Measles Herpes Chicken pox Kidney disease Skin cancer (~2014) BPH w urinary obs/LUTS CAD (coronary artery disease) Surgical History (Updated 06/24/24 @ 12:48 by Dk Rivera MD) S/P cardiac pacemaker procedure S/P ablation of atrial flutter Anesthesia History of coronary artery stent placement (~2011) Family History Father History of heart disease Hyperlipidemia Brother History of heart bypass surgery Social History marital status: details: retired TV/radio number of children: 1 household members: none Smoking Status: Former smoker Smokeless tobacco user: other alcohol intake: never caffeine: Yes Smoking Status: Former smoker Exam Narrative Exam Narrative: GENERAL: Well-developed patient, in mild distress. HEAD: Atraumatic. Normocephalic. EYES: Pupils equal round and reactive. Extraocular motions intact. No scleral icterus. No injection or drainage. ENT: Nose without bleeding, purulent drainage. Throat without erythema, tonsillar hypertrophy or exudate. Airway patent. NECK: Trachea midline. Non tender CARDIOVASCULAR: Regular rate and rhythm without murmurs, gallops, or rubs. RESPIRATORY: Clear to auscultation. Breath sounds equal bilaterally. No wheezes, rales, or rhonchi. Left upper chest pacer site with healed scar, no redness or crepitance or discharge. GASTROINTESTINAL: Abdomen soft, non-tender, nondistended. EXTREMITIES: No edema or joint tenderness. BACK: Nontender without deformity or crepitance. No flank tenderness. NEURO: AOx3. Motor functions grossly nonfocal SKIN: No rash or erythema of visible areas Initial Vital Signs Initial Vital Signs: Vital Signs Blood Pressure 141/67 H 06/29/24 18:51 Course Orders Ordered: ED Orders 06/29/24 19:23 Complete Blood Count AUTO DIFF Stat Comprehensive Metabolic Panel Stat Lipase Stat Troponin & CK Cardiac Panel Stat 06/29/24 19:33 XR chest 1V Stat EKG-12 Lead Stat Discontinued Medications Hydralazine HCl (Hydralazine 20 Mg/Ml Vial) 5 mg IV NOW ONE Stop: 06/29/24 19:35 Last Admin: 06/29/24 20:08 Dose: 5 mg Documented By: MPO Vital Signs Vital signs: Vital Signs - 8 hr 06/29/24 18:51 06/29/24 18:53 06/29/24 18:56 Temperature 97.6 F Pulse Rate 83 83 Respiratory Rate 18 Blood Pressure 141/67 H 141/67 H Pulse Oximetry 97 97 Oxygen Delivery Method Room Air 06/29/24 19:00 06/29/24 19:00 06/29/24 19:02 Temperature Pulse Rate 81 Respiratory Rate 22 Blood Pressure 217/95 H 209/92 H Pulse Oximetry 97 Oxygen Delivery Method 06/29/24 19:02 06/29/24 19:30 06/29/24 19:35 Temperature Pulse Rate 81 77 Respiratory Rate 18 23 Blood Pressure 215/90 H Pulse Oximetry 97 97 Oxygen Delivery Method 06/29/24 19:35 06/29/24 19:38 06/29/24 19:38 Temperature Pulse Rate 79 78 Respiratory Rate 17 21 Blood Pressure 203/81 H Pulse Oximetry 97 97 Oxygen Delivery Method 06/29/24 19:45 06/29/24 19:45 06/29/24 20:00 Temperature Pulse Rate 78 77 Respiratory Rate 21 17 Blood Pressure 173/83 H Pulse Oximetry 96 97 Oxygen Delivery Method 06/29/24 20:00 06/29/24 20:08 06/29/24 20:16 Temperature Pulse Rate 76 82 Respiratory Rate 25 H Blood Pressure 202/91 H 202/91 H Pulse Oximetry 96 Oxygen Delivery Method 06/29/24 20:16 06/29/24 20:25 06/29/24 20:28 Temperature Pulse Rate 74 Respiratory Rate Blood Pressure 133/61 133/61 172/75 H Pulse Oximetry Oxygen Delivery Method 06/29/24 20:28 06/29/24 20:30 06/29/24 20:30 Temperature Pulse Rate 76 75 Respiratory Rate 22 13 Blood Pressure 172/78 H Pulse Oximetry 97 98 Oxygen Delivery Method 06/29/24 20:45 06/29/24 20:45 06/29/24 21:00 Temperature Pulse Rate 75 Respiratory Rate 14 Blood Pressure 160/67 H 166/74 H Pulse Oximetry 97 Oxygen Delivery Method Room Air 06/29/24 21:00 06/29/24 21:30 06/29/24 21:30 Temperature Pulse Rate 75 79 Respiratory Rate 18 19 Blood Pressure 178/81 H Pulse Oximetry 97 97 Oxygen Delivery Method Room Air Medical Decision Making Lab Data 06/29/24 19:23 06/29/24 19:23 Labs: Lab Results 06/29/24 Range/Units 19:23 WBC 6.7 (4.5-11.0) X10^3/uL RBC 4.15 L (4.5-5.9) X10^6/uL Hgb 13.0 L (13.5-17.5) g/dL Hct 38.2 L (41-53) % MCV 92.0 (80-100) fL MCH 31.2 (26-34) PG MCHC 33.9 (30-36) % RDW 14.9 H (11.6-14.8) % Plt Count 199 (150-400) X10^3/uL Neut % (Auto) 66.6 (50-75) % Lymph % (Auto) 15.1 L (25-40) % Emanuel % (Auto) 11.4 (3-14) % Eos % (Auto) 5.6 H (2-4) % Baso % (Auto) 1.3 (0-2) % Neut # (Auto) 4400 (2589-3690) /uL Lymph # (Auto) 1000 L (8683-5658) /uL Emanuel # (Auto) 800 (0-900) /uL Eos # (Auto) 400 (0-450) /uL Baso # (Auto) 100 (0-100) /uL Sodium 138 (137-145) mmol/L Potassium 4.1 (3.4-5.1) mmol/L Chloride 106 (98-107) mmol/L Carbon Dioxide 27 (22-32) mmol/L BUN 24 H (9-20) mg/dL Creatinine 1.11 (0.66-1.25) mg/dL Estimated GFR > 60 (>60) mL/min BUN/Creatinine Ratio 21.6 (6-22) Glucose 114 H (70-99) mg/dL Calcium 9.1 (8.4-10.2) mg/dL Total Bilirubin 0.6 (0.2-1.3) mg/dL AST 47 (17-59) IU/L ALT 50 H (<50) IU/L Alkaline Phosphatase 154 H (38-126) U/L Total Creatine Kinase 54 L (55-170) U/L Troponin I < 0.012 (0.01-0.034) ng/mL Total Protein 6.8 (6.3-8.2) g/dL Albumin 3.9 (3.5-5.0) g/dL Globulin 2.9 (1.7-4.1) g/dL Albumin/Globulin Ratio 1.3 (1.0-2.8) Lipase 82 (23-300) U/L ECG Data Attestation: I personally reviewed and interpreted this ECG as follows: Interpretation: Normal sinus rhythm with rate of 79, no obvious ST segment elevation or depression changes. TX 206, QRS 86, QTC 463. MDM Narrative Medical decision making narrative: 88-year-old male with history of hypertension on carvedilol and hydralazine, status post pacemaker last month, elevated blood pressures at home, without chest pain or shortness of breath. Screening labs and EKG sent from triage. Cardiac pacemaker interrogation initiated by triage nursing. Elevated blood pressure 200/100 noted. Lemon report phone call to HILARIA Wilson charge nurse, no active pacing since placement, no ectopy or malfunction known. Printed report received, given to patient for follow up, as they will be relocating to [facility] soon, to establish with cardiology services there. Screening labs unremarkable. IV hydralazine 5 mg single dose, blood pressure improved. Patient feels better, we would like to go home, they are hoping to catch the [place] here on Sunday evening. Discharged home per patient request. Home with family. Follow up with Cardiology advised. Copy of interrogation pacemaker report provided. Discharge Plan Departure Patient Disposition: Home Clinical Impression: Hypertension Activity Restrictions/Additional Instructions: History of cardiac pacemaker placed last month, elevated blood pressures, taking carvedilol and hydralazine. Elevated blood pressures tonight. Screening labs unremarkable. IV hydralazine single dose given. Blood pressure improved range. Continue taking your carvedilol and hydralazine. Contact your transportation engineering technician tomorrow during regular hours to address further adjustments in your blood pressure medication regimen. We also did interrogation of your recently placed new pacemaker, apparently there were no paced rhythms recent since placement, but no problems identified. A copy of the report provided to show to your transportation engineering technician in follow up. Prescriptions: No Action latanoprost 0.005 % drops 1 drp EYE-BOTH DAILY aspirin 81 mg tablet,delayed release (DR/EC) 81 mg PO DAILY (DME) Parking Permit... See Rx Instructions .Route .MEDSUPPLY Qty: 1 0RF Rx Instructions: As directed nitroglycerin 0.4 mg tablet, sublingual 0.4 mg sublingual Q5-15M PRN (Reason: chest pain) Qty: 25 2RF Rx Instructions: do not exceed 3 doses per episode atorvastatin 40 mg tablet 40 mg PO DAILY Qty: 90 3RF carvedilol 6.25 mg tablet 6.25 mg PO BID Qty: 180 3RF Rx Instructions: must administer with a meal/food diltiazem HCl [DILT-XR] 120 mg capsule,ext.rel 24h degradable 120 mg PO DAILY Qty: 90 3RF finasteride 5 mg tablet 5 mg PO .EOD Qty: 45 3RF Rx Instructions: Take 1 tablet every other day hydralazine 10 mg tablet 10 mg PO BID Qty: 180 3RF sertraline 50 mg tablet 50 mg PO DAILY Qty: 90 3RF valsartan 40 mg tablet 40 mg PO DAILY Qty: 90 3RF cholecalciferol (vitamin D3) 1 tab PO DAILY [id number]-FA-vit K [Adults Multivitamin] 1 tab PO DAILY omega-3 fatty acids [Fish Oil] 1 cap PO DAILY Referrals: Dk Rivera MD [Primary Care Provider] - Stand Alone Forms: Patient Portal/API/Survey
--- NOTE | 2024-06-29 20:51 | PC.NURSE ---
Martha from [facility] (#[phone]) calls to talk to this RN about pacer interrogation. She reports to this RN that there have been no episodes since implant, and he is not pacer dependent. Provider Romeo made aware.
== END 2024-06-29 21:38 | disposition home or self-care (01) ==
PROVIDERS: Emergency Provider Emergency Medicine; Family Provider Internal Medicine; PCP Internal Medicine
DX: I10 Essential (primary) hypertension (principal); Z95.0 Presence of cardiac pacemaker; Z87.891 Personal history of nicotine dependence
CPT/HCPCS: 71045; 80053; 82550; 83690; 84484; 85025; 93005; 93010; 96374; 99284; J0360